=== PATIENT | male | born 1955 | race Caucasian/White ===

== ENCOUNTER 2017-06-08 06:01 | Inpatient (IN) | payer BC ==
[2017-05-24 14:34] LABS: APPEARANCE,URINE CLEAR; BILIRUBIN, URINE NEGATIVE (NEGATIVE); GLUCOSE, URINE (UA) NEGATIVE (NEGATIVE); KETONES,URINE 1+ (NEGATIVE); LEUKOCYTE ESTERASE ,URINE 1+ (NEGATIVE); NITRITE,URINE NEGATIVE (NEGATIVE); PH,URINE 5 (4.5-8.0); PROTEIN,URINE 1+ (NEGATIVE); UROBILINOGEN,URINE NORMAL MG/DL (0.0-1.0)
[2017-05-24 14:45] LABS: COLOR,URINE YELLOW
[2017-05-24 14:46] LABS: INR 0.9 (0.9-1.1)
--- NOTE | 2017-05-24 16:09 | Diagnostic Imaging Report ---
Indication: Cough Technique: 2 views of the chest Comparison: None Findings: Lungs and pleural spaces are clear. The heart size is normal. The bones are unremarkable. Impression: Negative
[2017-06-08] VITALS (14 sets, daily range): BP systolic 99–129; BP diastolic 59–80
[~2017-06-08] VITALS: Ht 185.4 cm; Wt 86.6 kg
[~2017-06-08 06:01] MED LIST: ceFAZolin 2gm/D5W 50ml Premix IV ONE
[2017-06-08] MEDS ORDERED: ALPHA LIPOIC A300 MG PO (07:08)
[2017-06-08] MEDS ORDERED: ROPINIROLE HCL5 MG PO (07:08)
[2017-06-08] MEDS ORDERED: CALCIUM500 M3 PO (07:08)
[2017-06-08] MEDS ORDERED: OXYCODONE-ACET1 EAC5 ORAL (07:08)
[2017-06-08] MEDS ORDERED: VITAMIN B-122000 MC1 PO (07:08)
[2017-06-08] MEDS ORDERED: ACYCLOVIR400 MG ORAL (07:08)
[2017-06-08] MEDS ORDERED: LYRICA75 M1 ORAL (07:08)
[2017-06-08] MEDS ORDERED: MEDROL DOSEPAK4 MG ORAL (07:08)
[2017-06-08] MEDS ORDERED: RASAGILINE MESYL1 MG PO (07:08)
[2017-06-08] MEDS ORDERED: MULTI-VITAMIN1 EACH PO (07:08)
[2017-06-08] MEDS ORDERED: COQ-10100 M1 PO (07:08)
[2017-06-08] MEDS ORDERED: VITAMIN E1000 UNI1 PO (07:08)
[2017-06-08] MEDS ORDERED: Thrombin 5000 units TOPIC ONE (07:49)
[2017-06-08] MEDS ORDERED: Thrombin 5000 units spray kit TOPIC ONE (07:50)
[2017-06-08] MEDS ORDERED: Bacitracin 50000 Units Vial ONE (07:50)
[2017-06-08] MEDS ORDERED: Gelfoam Absorbable 1gm powder pkt TOPIC ONE (07:50)
[2017-06-08] MEDS ORDERED: Bupivacaine 0.5% Inj 30 ml vial INJ ONE (07:50)
[2017-06-08] MEDS ORDERED: EPINEPHrine 1mg/1ml Amp ONE (07:50)
[2017-06-08] MEDS ORDERED: Zemuron 50mg/5ml Inj IV ONE (08:00)
[2017-06-08] MEDS ORDERED: Solu-MEDROL 40mg Inj ONE (08:00)
[2017-06-08] MEDS ORDERED: Sterile Water Irrig 1000ml IRRIG ONE (08:00)
[2017-06-08] MEDS ORDERED: fentaNYL 100 mcg/2 mL IV ONE (08:00)
[2017-06-08] MEDS ORDERED: Midazolam 2mg/2ml Inj ONE (08:00)
[2017-06-08] MEDS ORDERED: NS Irrig 1000ml ONE (08:00)
[2017-06-08] MEDS ORDERED: LR 1000ml ONE (08:00)
[2017-06-08] MEDS ORDERED: Propofol 1,000mg/ 100ml btl IV ONE (08:00)
--- NOTE | 2017-06-08 08:04 | Pre-Procedure Note/Attestation ---
Pre-Procedure Note/Attestation Complete Prior to Procedure Procedure Narrative: lumbar decompression Indications for Procedure Pre-Operative Diagnosis: Spinal stenosis with radiculopathy Attestation I attest that I discussed the nature of the procedure; its benefits; risks and complications; and alternatives (and the risks and benefits of such alternatives ), prior to the procedure, with the patient (or the patient's legal footwear sales representative). I attest that, if there was a reasonable possibility of needing a blood transfusion, the patient (or the patient's legal footwear sales representative) was given the [facility] standardized written summary, pursuant to the Rayshawn [place] Blood Safety Act ([place] Health and Safety Code # 1645, as amended). I attest that I re-evaluated the patient just prior to the surgery and that there has been no change in the patient's H&P, except as documented below: TONY ADDISON Jun 08, 2017 08:04
[2017-06-08] MEDS ORDERED: LR 1000ml 1,000 ML IVLG SCH (09:21)
[2017-06-08] MEDS ORDERED: LR 1000ml 1,000 ML IV SCH (09:30)
[2017-06-08] MEDS ORDERED: Hydromorphone 0.5mg/0.5ml inj IVP PRN (09:30)
[2017-06-08] MEDS ORDERED: DiphenhydrAMINE 50mg/ml Inj IVP PRN (09:30)
--- NOTE | 2017-06-08 09:33 | Anethesia Preoperative Eval ---
Anesthesia Pre-op PMH/ROS General Date of Evaluation: Jun 08, 2017 Time of Evaluation: 08:00 Anesthesiologist: Sanjuana ASA Score: ASA 3 Mallampati Score Class I : Soft palate, uvula, fauces, pillars visible Class II: Soft palate, uvula, fauces visible Class III: Soft palate, base of uvula visible Class IV: Only hard plate visible Mallampati Classification: Class II Surgeon: Marysol Diagnosis: L-5 wedge compression Surgical Procedure: Laminecomy L4-5 Family History: no anesthesia problems Allergies: Coded Allergies: No Known Allergies (Unverified , 06/07/17) Medications: see eMAR Past Medical History Cardiovascular: Denies: HTN, CAD, SD, valve dz, arrhythmia, other Pulmonary: Denies: asthma, COPD, LYNNE, other Gastrointestinal/Genitourinary: Denies: GERD, CRI, ESRD, other Neurologic/Psychiatric: Reports: other - Pakinson's; Denies: dementia, CVA, depression/anxiety, TIA Endocrine: Denies: DM, hypothyroidism, steroids, other HEENT: Denies: cataract (L), cataract (R), glaucoma, PENOBSCOT (L), PENOBSCOT (R), other Hematology/Immune: 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 Exam Physician Exam Last Vital Signs Date Time Temp Pulse Resp B/P (MAP) Pulse Ox O2 Delivery O2 Flow Rate FiO2 06/08/17 07:09 97.8 58 18 129/76 96 Room Air 97.8 Constitutional: NAD Neurologic: CN 2-12 intact Cardiovascular: RRR, no M/R/G Respiratory: CTA Gastrointestinal: S/NT/ND Airway Exam Mallampati Score: Class II MO: full ROM: full Teeth: intact Anesthesia Pre-op A/P Labs WNL Studies Pre-op Studies: EKG - R, echo - Nl wall motion and EF Risk Assessment & Plan Assessment: class 3 patient for laminecomy Plan: GETA, steroid stress dose Status Change Before Surgery: No Pre-Antibiotics Drug: ancef Given Within 1 Hr of Incision: Yes Time Given: 08:30 GURWINDER REYES M.D. Jun 08, 2017 09:33
--- NOTE | 2017-06-08 09:35 | Immediate Post-Op Evaluation ---
Immediate Post-Op Evalulation Immediate Post-Op Evalulation Procedure: Laminectomy L4-5 Date of Evaluation: Jun 08, 2017 Time of Evaluation: 11:45 IV Fluids: 1100 Estimated Blood Loss: 50 Urinary Output: 250 Blood Pressure Systolic: 125 Blood Pressure Diastolic: 69 Pulse Rate: 77 Respiratory Rate: 18 O2 Sat by Pulse Oximetry: 99 Temperature (Fahrenheit): 98.6 Pain Score (1-10): 0 Nausea: No Vomiting: No Complications No complication Patient Status: reacts, patent, extubated, none Hydration Status: adequate Drug: Ancef Given Within 1 Hr of Incision: Yes Time Given: 08:30 GURWINDER REYES M.D. Jun 08, 2017 09:35
[2017-06-08] MEDS ORDERED: D5 1/2NS 1,000 ML IV SCH (11:08)
[2017-06-08] MEDS ORDERED: Naloxone 0.4mg/ml Inj IVP PRN ×2 (11:15→13:15)
[2017-06-08] MEDS ORDERED: Milk of Magnesia 30ml Ud ORAL PRN ×2 (11:15→13:15)
[2017-06-08] MEDS ORDERED: traMADol 50mg tab ORAL PRN ×2 (11:15→13:15)
--- NOTE | 2017-06-08 11:18 | Brief Operative Note ---
Immediate Post Operative Note Operative Note Pre-op Diagnosis: Spinal stenosis with radiculopathy Procedure: L4 and L5 B laminectomy, R l45 discectomy Post-op Diagnosis: same as pre-op Findings: consistent w/pre-op dx studies Surgeon: carmen Enologist: cony lew Anesthesiologist: gabo roque Anesthesia: general Specimen: yes - lamina and disc Complications: none Condition: stable Fluids: 1100 Estimated Blood Loss: volume - 75 Drains: none Implant(s) used?: Yes TONY ADDISON Jun 08, 2017 11:18
--- NOTE | 2017-06-08 11:51 | Diagnostic Imaging Report ---
Indication: Pain, intraoperative Technique: Intraoperative images Comparison: none Findings: [place] initially projected posterior to the inferior aspect of what is presumably L4 and the inferior aspect of L5. Subsequent image demonstrates surgical tool posterior what is presumably L5. Impression: Intraoperative imaging, as described
[2017-06-08] MEDS ORDERED: HYDROmorphone 1mg/ml Carpuject SUBQ PRN ×2 (13:15)
[2017-06-08] MEDS ORDERED: HYDROcodone/Acetamin 7.5/325 tab ORAL PRN ×4 (13:15)
[2017-06-08] MEDS ORDERED: Norco 5mg/325mg tab ORAL PRN ×2 (13:15)
[2017-06-08] MEDS: D5 1/2NS 1,000 ML IV SCH ×2 (13:57→23:26)
[2017-06-08] MEDS ORDERED: ceFAZolin sod 1 GM in D5W 55 ML IV SCH (14:00)
[2017-06-08] MEDS: ceFAZolin sod 1 GM in D5W 110 ML IV SCH ×2 (16:52→23:26)
[2017-06-08] MEDS: Docusate 100mg cap ORAL SCH (16:57)
--- NOTE | 2017-06-08 17:58 | Internal Med Progress Note ---
Subjective Date of Service: Jun 08, 2017 Physician Name PerezGarfield candealrio Attending Physician Marin Gregg Current Medications Medications (Trade) Dose Ordered Sig/Gabriel Route PRN Reason Start Time Stop Time Status Last Admin Dose Admin Acetaminophen (Tylenol) 650 mg Q4H PRN ORAL headache or temp>101 06/08/17 13:15 07/08/17 13:14 Acetaminophen/ Hydrocodone Bitart (Leonardo 5/325) 1 tab Q3H PRN ORAL pain score 1-3 06/08/17 13:15 06/15/17 13:14 Acetaminophen/ Hydrocodone Bitart (Leonardo 5/325) 1 tab Q3H PRN ORAL pain score 1-3 06/08/17 13:15 06/15/17 13:14 Acetaminophen/ Hydrocodone Bitart (Leonardo 7.5/325) 1 tab Q3H PRN ORAL pain score 4-6 06/08/17 13:15 06/15/17 13:14 Acetaminophen/ Hydrocodone Bitart (Leonardo 7.5/325) 1 tab Q3H PRN ORAL pain score 4-6 06/08/17 13:15 06/15/17 13:14 Acetaminophen/ Hydrocodone Bitart (Leonardo 7.5/325) 2 tab Q3H PRN ORAL pain scale 7-10 06/08/17 13:15 06/15/17 13:14 Acetaminophen/ Hydrocodone Bitart (Leonardo 7.5/325) 2 tab Q3H PRN ORAL pain scale 7-10 06/08/17 13:15 06/15/17 13:14 Cefazolin Sodium 1 gm/Dextrose 110 ml @ 220 mls/hr Q8H IV 06/08/17 16:00 06/09/17 08:29 06/08/17 16:52 Dextrose/Sodium Chloride 1,000 ml @ 100 mls/hr Q10H IV 06/08/17 13:15 07/08/17 13:14 06/08/17 13:57 Docusate Sodium (Colace) 100 mg TWICE A DAY ORAL 06/08/17 18:00 07/08/17 17:59 Hydrocortisone (Solu-CORTEF) 100 mg EVERY 12 HOURS IV 06/08/17 21:00 06/09/17 10:00 Hydromorphone HCl (Dilaudid) 1 mg Q4H PRN SUBQ Mild Pain (Pain Scale 1-3) 06/08/17 13:15 06/15/17 13:14 Hydromorphone HCl (Dilaudid) 1 mg Q4H PRN SUBQ Mild Pain (Pain Scale 1-3) 06/08/17 13:15 06/15/17 13:14 Hydromorphone HCl (Dilaudid) 2 mg Q3H PRN SUBQ Severe Pain (Pain Scale 7-10) 06/08/17 13:15 06/15/17 13:14 Hydromorphone HCl (Dilaudid) 2 mg Q4H PRN SUBQ Moderate Pain (Pain Scale 4-6) 06/08/17 13:15 06/15/17 13:14 06/08/17 13:59 Magnesium Hydroxide (Mom) 30 ml QIDPRN PRN ORAL Constipation 06/08/17 13:15 07/08/17 13:14 Naloxone HCl (Narcan) 0.1 mg PRN PRN IVP RR<12/min, pt unarousable 06/08/17 13:15 07/08/17 13:14 Ondansetron HCl (Zofran) 4 mg Q6H PRN IVP Nausea & Vomiting 06/08/17 13:15 07/08/17 13:14 Prochlorperazine (Compazine) 10 mg Q6H PRN IVP Persistent N/V 06/08/17 13:15 07/08/17 13:14 Temazepam (Restoril) 15 mg HSPRN PRN ORAL Insomnia 06/08/17 13:15 06/15/17 13:14 Tramadol HCl (Ultram) 50 mg Q6H PRN ORAL Breakthrough Pain 06/08/17 13:15 06/15/17 13:14 Allergies: Coded Allergies: No Known Allergies (Unverified , 06/07/17) ROS Limited/Unobtainable: No Constitutional: Reports: no symptoms HEENT: Reports: no symptoms Cardiovascular: Reports: no symptoms Respiratory: Reports: no symptoms Gastrointestinal/Abdominal: Reports: no symptoms Genitourinary: Reports: no symptoms Neurologic/Psychiatric: Reports: no symptoms Subjective 61 YO M with lumbar stenosis. Now S/P Lumbar decompression L4-L5 on 06/08/17. Cover for Mauro Acosta-Dr Bowens. Objective Last Vital Signs Date Time Temp Pulse Resp B/P (MAP) Pulse Ox O2 Delivery O2 Flow Rate FiO2 06/08/17 16:00 97.6 69 18 106/64 100 Room Air 97.6 06/08/17 13:00 3.0 General Appearance: WD/WN, alert, moderate distress EENT: PERRL/EOMI, normal ENT inspection Neck: non-tender, normal alignment, supple, normal inspection Cardiovascular: normal peripheral pulses, normal rate, regular rhythm, no gallop/murmur, no JVD Respiratory/Chest: chest wall non-tender, lungs clear, normal breath sounds, no respiratory distress, no accessory muscle use Abdomen: normal bowel sounds, non tender, soft, no organomegaly, no mass Extremities: normal range of motion, non-tender Neurologic: 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 (4) Herniated nucleus pulposus, L4-5 right PEREZGARFIELD Jun 08, 2017 17:58
[2017-06-08] MEDS ORDERED: Docusate 100mg cap ORAL SCH (18:00)
[2017-06-08] MEDS: Tums 500mg ORAL SCH (18:54)
--- NOTE | 2017-06-08 19:00 | Operative Note - Dictated ---
DATE OF OPERATION: 06/08/2017 SURGEON: Marin Gregg M.D. MASH PROCESSING OPERATOR: Rhett Gonzalez PA-C. ANESTHESIOLOGIST: Rayshawn Wei M.D. ANESTHESIA TYPE: General endotracheal anesthesia. PREOPERATIVE DIAGNOSIS: Spinal stenosis at L4 and L5. POSTOPERATIVE DIAGNOSES: Spinal stenosis at L4 and L5 plus right-sided disk extrusion at L4-L5 foramen. OPERATION PERFORMED: 1. Hemilaminectomy bilateral L4. 2. Hemilaminectomy bilateral L5. 3. Medial facetectomy bilaterally L4-L5. 4. Right-sided microscopic diskectomy L4-L5. 5. Neurolysis right side L4-L5. 6. Use of operating microscope. 7. Use of fluoroscopy for localization purposes. ESTIMATED BLOOD LOSS: 75 mL. FLUIDS: 1100. COMPLICATIONS: None. FINDINGS: Extruded disk fragments, right side L4-L5 resulting in severe foraminal stenosis. INDICATIONS: The patient is a very pleasant gentleman with progressively worsening back pain and radiculopathic pain down the right lower extremity. He does have a history of multiple myeloma. He has been followed over the course of last several years on subsequent MRI, which was recently obtained and compared to prior there has been evidence of severe central and lateral recess stenosis at L4-L5 with progression of epidural lipomatosis. There is also significant radiculopathy down the right lower extremity. He did have a good initial response to epidural injection, but the effect wore off, he elected to proceed with surgical intervention due to intractable pain. RISK NOTE: The patient was explained in detail the risks and benefits of surgery to include, but not be limited to, those of bleeding, infection, damage to nerves, vessels, tendons, anesthetic risk, allergic reaction, aspiration, and possibly . The patient understood wished to proceed. OPERATIVE PROCEDURE IN DETAIL: The patient was taken the operative suite after general endotracheal anesthesia was obtained, Dao catheter was placed. He was turned prone onto a radiolucent table. All bony prominences were well padded. The back was prepped and draped in usual sterile fashion. Two needles were placed at L4 and L5 after radiographically confirmed with fluoroscopy. The patient then received 10 mL of Marcaine with epinephrine. Incision was carried down midline from L4 through L5. Subperiosteal dissection was carried out. The anatomy on the right side was discordance with the left side. Multiple fluoroscopic images confirmed appropriate positioning. At this point, high-speed drill was used under microscopic visualization to drill out the leading edge of lamina of L4 as well as medial facetectomy. The ligamentum flavum was removed in a piecemeal fashion. Severe stenosis was encountered. At this point, after the hemilaminectomy was performed at L4, a probe was placed under L5, which was still severely stenotic. A cheryl was placed under the leading edge of L5 and one-half/nearly two-thirds of the lamina of L5 was removed from a North to South direction. This area was severely stenotic and high risk for dural leak. As much as of the decompression that could be done from this approach was performed, I elected to then pack this area of decompress from the right side, which would hopefully make the left-sided approach safer. At this point, this area was packed off in an identical fashion. Hemilaminectomy was performed at the leading edge of L4 and the cephalad one-half/two-thirds of L5. Please note that again the dural sac was very tented under the leading edge of L5 requiring a significant laminectomy of L5 both centrally as well as along the lateral recess and along the area of the neural foramen. This was performed using high-speed drill as well as Kerrison punches. Once the decompression at L4 and L5 was complete, the neuroforamen was probed and noted to be still very stenotic. The nerve root was gently retracted medially which then gave us exposure of the disk and clearly the disk was extruded into a subligamentous position. The PLL was incised and an extruded disk fragment was removed in a piecemeal fashion. Loose intradiscal fragments were then also removed with a combination of pituitary and down pushing curettes. Extensive intradiscal irrigation was performed, which allowed for removal of loose disk fragments. Once satisfied with the diskectomy, a 2/3/4 Microsect curettes were then used to expose the neural foramen and the leading tip of the superior articular process of L5 was osteotomized and removed allowing for thorough decompression. Once satisfied with the decompression at L4 and L5 and neural foramen and diskectomy at the L4-L5 level on the right side, FloSeal was applied. Hemostasis was applied. Attention was then once again turned to the left side, which then allowed with the decompression on the right to more safely complete the decompression down along the leading edge and half of L5 lamina into the lateral recess and centrally. The attention was then turned more proximally and dissection was carried out by removing the hypertrophied facet capsule and superior articular process of L5 and decompressing the neural foramen using a curette and Kerrison punch and Microsect instruments. Once satisfied with the thorough decompression, Valsalva demonstrated no CSF leakage. Copious irrigation was performed. FloSeal once again applied for meticulous hemostasis. The fascia was repaired using #1 Vicryl. Subcutaneous closure using 2-0 Vicryl. Dermabond and sterile dressing was applied. At the time of this dictation, the patient was awaiting extubation. Sponge and needle counts were correct. Neurodiagnostic monitoring did remain stable throughout. Marin Gregg M.D. DR: BIRD JOB#: [id number] CC:
[2017-06-08] MEDS: Hydrocortisone 100mg Inj IV SCH (20:39)
[2017-06-08] MEDS: Lyrica 25mg cap ORAL SCH (20:40)
[2017-06-08] MEDS ORDERED: Chloraseptic Spray 20mL Bottle ORAL PRN (20:45)
[2017-06-08] MEDS ORDERED: oxyCODONE 5mg IR tab ORAL PRN ×2 (20:45)
[2017-06-08] MEDS: valACYclovir HCL 500mg tab ORAL SCH (22:30)
[2017-06-09] VITALS: BP 128/69
--- NOTE | 2017-06-09 00:45 | Consultation ---
DATE OF CONSULTATION: 06/08/2017 CONSULTING PHYSICIAN: Kojo Flores M.D. REFERRING PHYSICIAN: Marin Gregg M.D. REASON FOR CONSULT: Acute pain consult. Dear Dr. Marin Gregg, Thank you kindly for consulting me to evaluate and render an opinion as to how to proceed in the management of the patient's acute postoperative lumbar spine pain after his lumbar spine surgery today. The patient is a 61-year-old gentleman with lumbar spinal stenosis. He underwent lumbar spine decompressive surgery today for his severe foraminal stenosis. Postoperatively, the patient complains of significant discomfort and you consulted me for acute pain consultation. I discussed the case with yourself, Dr. Gregg along with the nurse RN, German. I saw the patient at bedside where I performed a detailed history and physical examination. I spent over 75 minutes in consultation with an additional 30 minutes in medical record review. I reviewed multiple records from today's date of surgery at [facility] including records from the surgery suite, the nursing and pharmacy departments. I reviewed multiple records from yourself, Dr. Gregg along with preoperative Cardiology reports from [facility] along with reports from Dr. Duran Bowens including diagnostic testing. PAST MEDICAL HISTORY: 1. Acute postoperative lumbar spine pain, status post lumbar spine decompressive surgery by Dr. Marin Gregg in May 2017. 2. Distant tobacco usage. 3. Nightly whiskey drinking, one shot per night. 4. Multiple myeloma, followed by [facility]. 5. Parkinson disease. PAST SURGICAL HISTORY: Tonsillectomy, appendectomy, and bilateral arthroscopic knee surgery. MEDICATIONS AT HOME: Acyclovir, vitamins, methylprednisolone, oxycodone, multivitamins, Lyrica, rasagiline, and ropinirole 6 mg b.i.d. ALLERGIES: No known drug allergies. FAMILY HISTORY: Obesity, diabetes, and coronary artery disease. SOCIAL HISTORY: The patient lives and works in [place]. He visits his on the weekends in [place], [place]. He quit tobacco 15 years ago. He drinks a shot of whiskey each evening. REVIEW OF SYSTEMS: Per Dr. Bowens. PHYSICAL EXAMINATION: GENERAL: Age 61. Height 6 feet 1 inch. Weight 87 kg. Body mass index 25. VITAL SIGNS: Afebrile. Pulse 70, respirations 17, blood pressure 106/64, and oxygen saturation 96% on room air. HEENT: Normocephalic and atraumatic. The patient does have a slightly slowed speech, which may be contributed by his Parkinson disease. CHEST: Clear to auscultation. HEART: Regular rate and rhythm. ABDOMEN: Soft. Positive bowel sounds. GENITOURINARY: Deferred. NEUROLOGIC: Detailed neurologic exam per Dr. Gregg. The patient is moving all extremities x4. A 5/5 dorsiflexion and 5/5 plantar flexion in bilateral lower extremities. BACK: Lumbar spine shows a dry dressing, but with painful by incision area. Straight leg raising deferred secondary to recent surgery. The patient has been able to ambulate out of bed to the restroom. DIAGNOSTIC TESTING: Shows echocardiogram normal heart size and function. A 12 lead EKG shows left axis deviation. Preoperative chest x-ray is within normal limits. Laboratory studies from 04/26/2017 shows 1+ protein and 1+ leukocyte esterase. INR 0.9. PTT 24. Glucose 112. Sodium 142, potassium 4.8, chloride 106, bicarb 34, BUN 13, creatinine 0.9, calcium 9.6, phosphorus 2.3, and magnesium 2.1. ALT 19 and AST 17. Total bilirubin 0.6. Total protein 7.0. Hematocrit 40 and white count 9. IMPRESSION: 1. Acute postoperative lumbar spine pain, status post lumbar spine decompressive surgery by Dr. Marin Gregg in May 2017. 2. Distant tobacco usage. 3. Nightly whiskey drinking, one shot per night. 4. Multiple myeloma, followed by [facility]. 5. Parkinson disease. TREATMENT AND RECOMMENDATIONS: The patient has no allergies. He has been started on oxycodone 10 days ago in the outpatient clinic. He has tolerated this medication. With his postsurgical pain complaints, I have ordered two different doses of oxycodone starting with oxycodone 5 mg instant release every three hours p.r.n. for mild pain. I have added oxycodone instant release 10 mg orally every three hours for moderate pain. I have ordered a breakthrough dose of Dilaudid 1 mg subcutaneously every three hours p.r.n. for severe breakthrough pain. The patient will resume his Lyrica 20 mg times a day for baseline neuropathic pain. I have added a dose of Protonix 40 mg nightly for GI ulcer prophylaxis. I have also ordered p.r.n. dose of Mylanta 30 mL q.6 hours in case of any GERD symptom exacerbation. I have ordered Benadryl 20 mg orally every six hours in case of any itching complaints. I have placed the patient on Colace b.i.d. as a stool softener and I have added Chloraseptic spray for any topical sore throat complaints after endotracheal anesthesia. A p.r.n. laxative milk of magnesia has been ordered. I have ordered incentive spirometer at the bedside to encourage good pulmonary toilet. I will defer DVT prophylaxis to the surgeon. The patient already has an ample supply of oxycodone for home usage. Kojo Flores M.D. DR: NOLAN JOB#: [id number] CC:
[2017-06-09 04:00] VITALS: BP 109/69
[2017-06-09 06:29] LABS: BASOPHILS % (AUTO) 0.3 % (0.0-2.0); HEMATOCRIT 33.6 % (42.0-52.0); HEMOGLOBIN 11.7 G/DL (14.2-18.0); LYMPHOCYTES % (AUTO) 7.1 % (20.0-45.0); MEAN CORPUSCULAR VOLUME 98 FL (80-99); MONOCYTES % (AUTO) 8.3 % (1.0-10.0); NEUTROPHILS % (AUTO) 84.3 % (45.0-75.0); PLATELET COUNT 210 K/UL (150-450); RED BLOOD COUNT 3.44 M/UL (4.70-6.10); RED CELL DISTRIBUTION WIDTH 11.5 % (11.6-14.8); WHITE BLOOD COUNT 11.4 K/UL (4.8-10.8)
[2017-06-09 06:46] LABS: ANION GAP 5 mmol/L (5-15); BLOOD UREA NITROGEN 12 mg/dL (7-18); CARBON DIOXIDE 31 MMOL/L (21-32); CHLORIDE 106 MMOL/L (98-107); CREATININE 0.8 MG/DL (0.55-1.30); POTASSIUM 3.8 MMOL/L (3.5-5.1); SODIUM 141 MMOL/L (136-145)
[2017-06-09 08:00] VITALS: BP 127/76
[2017-06-09] MEDS: Hydrocortisone 100mg Inj IV SCH (08:21)
[2017-06-09] MEDS: ceFAZolin sod 1 GM in D5W 110 ML IV SCH (08:21)
[2017-06-09] MEDS: valACYclovir HCL 500mg tab ORAL SCH (08:22)
[2017-06-09] MEDS: Lyrica 25mg cap ORAL SCH ×2 (08:22→13:15)
[2017-06-09] MEDS: Docusate 100mg cap ORAL SCH (08:22)
[2017-06-09] MEDS: Tums 500mg ORAL SCH ×3 (08:22→13:00)
--- NOTE | 2017-06-09 08:43 | Orthopedic Spine Progress Note ---
Ortho Spine - Progress Note Subjective Symptoms: c/o post-op back pain, improved - as compared to pre-op Objective Vital Signs: Last 24 Hour Vital Signs Date Time Temp Pulse Resp B/P (MAP) Pulse Ox O2 Delivery O2 Flow Rate FiO2 06/09/17 04:00 97.2 69 17 109/69 95 Room Air 97.2 06/09/17 00:00 97.2 65 18 128/69 96 Room Air 97.2 06/08/17 20:00 97.4 70 17 99/59 96 Room Air 97.4 06/08/17 18:20 97.6 06/08/17 17:50 97.6 06/08/17 16:00 97.6 69 18 106/64 100 Room Air 97.6 06/08/17 15:00 97.0 69 20 108/74 99 Room Air 97.0 06/08/17 14:00 97.0 69 18 110/63 95 97.0 06/08/17 13:59 97.0 06/08/17 13:00 97.8 97 16 127/80 100 Nasal Cannula 3.0 97.8 06/08/17 12:45 98.6 06/08/17 12:34 98.6 64 16 118/64 99 Nasal Cannula 3.0 98.6 06/08/17 12:27 64 16 116/64 99 Nasal Cannula 3.0 06/08/17 12:25 64 16 116/64 99 Nasal Cannula 3.0 06/08/17 12:15 66 16 123/66 99 Nasal Cannula 3.0 06/08/17 12:00 73 16 119/69 99 Simple Mask 6.0 06/08/17 11:45 73 16 118/67 99 Simple Mask 6.0 06/08/17 11:40 75 15 122/67 99 Simple Mask 6.0 06/08/17 11:36 209.5 77 18 99 06/08/17 11:35 98.2 76 18 121/68 99 Simple Mask 6.0 98.2 I&O: Intake and Output 06/08/17 06/09/17 19:00 07:00 Intake Total 2300 ml 1600 ml Output Total 300 ml Balance 2000 ml 1600 ml Intake Oral 600 ml 500 ml IV Total 1700 ml 1100 ml Output Urine Total 250 ml Estimated Blood Loss 50 ml # Voids 1 4 Wound: clean, intact Drains: none Neuro Status: normal Assessment Procedure Performed: L4 and L5 B laminectomy, R l45 discectomy Plan Plan: PT, pain management, discharge to home TONY ADDISON Jun 09, 2017 08:43
[2017-06-09] MEDS: D5 1/2NS 1,000 ML IV SCH (09:23)
--- NOTE | 2017-06-09 11:57 | 48 Hour Post Anesthesia Eval ---
Post Anesthesia Evaluation Procedure: Laminectomy L4-5 Date of Evaluation: Jun 09, 2017 Time of Evaluation: 08:22 Blood Pressure Systolic: 124 0: 75 Pulse Rate: 68 Respiratory Rate: 20 Temperature (Fahrenheit): 97.5 O2 Sat by Pulse Oximetry: 98 Airway: patent Nausea: No Vomiting: No Pain Intensity: 3 Hydration Status: adequate Cardiopulmonary Status: stable Mental Status/LOC: patient returned to baseline Follow-up Care/Observations: n/a Post-Anesthesia Complications: none Follow-up care needed: N/A RADHA NEVILLE M.D. Jun 09, 2017 11:57
[2017-06-09 12:00] VITALS: BP 128/78
--- NOTE | 2017-06-09 13:24 | Internal Med Progress Note ---
Subjective Date of Service: Jun 09, 2017 Physician Name Garfield Perez Attending Physician Marin Gregg Current Medications Medications (Trade) Dose Ordered Sig/Gabriel Route PRN Reason Start Time Stop Time Status Last Admin Dose Admin Acetaminophen (Tylenol) 650 mg Q4H PRN ORAL headache or temp>101 06/08/17 13:15 07/08/17 13:14 Al Hydroxide/Mg Hydroxide (Mylanta) 30 ml Q6H PRN ORAL GERD 06/08/17 20:45 07/08/17 20:44 Calcium Carbonate (Tums) 500 mg THREE TIMES A DAY ORAL 06/08/17 19:00 07/08/17 18:59 Dextrose/Sodium Chloride 1,000 ml @ 100 mls/hr Q10H IV 06/08/17 13:15 07/08/17 13:14 06/09/17 09:23 Diphenhydramine HCl (Benadryl) 25 mg Q6H PRN ORAL Itching 06/08/17 20:45 07/08/17 20:44 Docusate Sodium (Colace) 100 mg TWICE A DAY ORAL 06/08/17 18:00 07/08/17 17:59 06/09/17 08:22 Hydromorphone HCl (Dilaudid) 1 mg Q3H PRN SUBQ Severe Breakthru Pain (>7) 06/08/17 20:45 06/15/17 20:44 Magnesium Hydroxide (Mom) 30 ml QIDPRN PRN ORAL Constipation 06/08/17 13:15 07/08/17 13:14 Multivitamins (Multivitamins) 1 tab DAILY ORAL 06/09/17 09:00 07/09/17 08:59 Naloxone HCl (Narcan) 0.1 mg PRN PRN IVP RR<12/min, pt unarousable 06/08/17 13:15 07/08/17 13:14 Ondansetron HCl (Zofran) 4 mg Q6H PRN IVP Nausea & Vomiting 06/08/17 13:15 07/08/17 13:14 Oxycodone HCl (Roxicodone) 5 mg Q3H PRN ORAL Mild Pain (Pain Scale 1-3) 06/08/17 20:45 06/15/17 20:44 06/09/17 04:08 Oxycodone HCl (Roxicodone) 10 mg Q3H PRN ORAL Moderate Breakthru Pain (5-7) 06/08/17 20:45 06/15/17 20:44 06/08/17 22:04 Pantoprazole (Protonix) 40 mg BEDTIME ORAL 06/08/17 21:00 07/08/17 20:59 06/08/17 22:03 Phenol/Menthol (Chloraseptic) 1 spray Q3H PRN ORAL SORE THROAT 06/08/17 20:45 07/08/17 20:44 Pregabalin (Lyrica) 25 mg THREE TIMES A DAY ORAL 06/08/17 21:00 07/08/17 20:59 06/09/17 13:15 Temazepam (Restoril) 15 mg HSPRN PRN ORAL Insomnia 06/08/17 13:15 06/15/17 13:14 Valacyclovir HCl (Valtrex) 500 mg EVERY 12 HOURS ORAL 06/08/17 21:00 07/08/17 20:59 06/09/17 08:22 Allergies: Coded Allergies: No Known Allergies (Unverified , 06/07/17) ROS Limited/Unobtainable: No Constitutional: Reports: no symptoms HEENT: Reports: no symptoms Cardiovascular: Reports: no symptoms Respiratory: Reports: no symptoms Gastrointestinal/Abdominal: Reports: no symptoms Genitourinary: Reports: no symptoms Neurologic/Psychiatric: Reports: no symptoms Subjective 61 YO M with lumbar stenosis. Now S/P Lumbar decompression L4-L5 on 06/08/17. Cover for [facility] Dave-Dr Bowens. Await discharge home today Objective Last Vital Signs Date Time Temp Pulse Resp B/P (MAP) Pulse Ox O2 Delivery O2 Flow Rate FiO2 06/09/17 13:15 98.5 06/09/17 12:00 69 19 128/78 96 Room Air 06/08/17 13:00 3.0 Laboratory Tests Test 06/09/17 06:00 White Blood Count 11.4 K/UL (4.8-10.8) H Red Blood Count 3.44 M/UL (4.70-6.10) L Hemoglobin 11.7 G/DL (14.2-18.0) L Hematocrit 33.6 % (42.0-52.0) L Mean Corpuscular Volume 98 FL (80-99) Mean Corpuscular Hemoglobin 34.1 PG (27.0-31.0) H Mean Corpuscular Hemoglobin Concent 34.9 G/DL (32.0-36.0) Red Cell Distribution Width 11.5 % (11.6-14.8) L Platelet Count 210 K/UL (150-450) Mean Platelet Volume 6.8 FL (6.5-10.1) Neutrophils (%) (Auto) 84.3 % (45.0-75.0) H Lymphocytes (%) (Auto) 7.1 % (20.0-45.0) L Monocytes (%) (Auto) 8.3 % (1.0-10.0) Eosinophils (%) (Auto) 0.0 % (0.0-3.0) Basophils (%) (Auto) 0.3 % (0.0-2.0) Sodium Level 141 MMOL/L (136-145) Potassium Level 3.8 MMOL/L (3.5-5.1) Chloride Level 106 MMOL/L (98-107) Carbon Dioxide Level 31 MMOL/L (21-32) Anion Gap 5 mmol/L (5-15) Blood Urea Nitrogen 12 mg/dL (7-18) Creatinine 0.8 MG/DL (0.55-1.30) Estimat Glomerular Filtration Rate > 60 mL/min (>60) Glucose Level 128 MG/DL (74-106) H Calcium Level 8.0 MG/DL (8.5-10.1) L Intake and Output 06/08/17 06/09/17 19:00 07:00 Intake Total 2300 ml 1600 ml Output Total 300 ml Balance 2000 ml 1600 ml Intake Oral 600 ml 500 ml IV Total 1700 ml 1100 ml Output Urine Total 250 ml Estimated Blood Loss 50 ml # Voids 1 4 Objective General Appearance: WD/WN, alert, moderate distress EENT: PERRL/EOMI, normal ENT inspection Neck: non-tender, normal alignment, supple, normal inspection Cardiovascular: normal peripheral pulses, normal rate, regular rhythm, no gallop/murmur, no JVD Respiratory/Chest: chest wall non-tender, lungs clear, normal breath sounds, no respiratory distress, no accessory muscle use Abdomen: normal bowel sounds, non tender, soft, no organomegaly, no mass Extremities: normal range of motion, non-tender Neurologic: supervisor electric motor testing II-XII grossly normal, no motor/sensory deficits Skin: normal pigmentation, warm/dry Assessment/Plan Problem List: (1) Multiple myeloma (2) Parkinson disease (3) Spinal stenosis at L4-L5 level Assessment & Plan: S/P lumbar decompression 06/08/17-see ortho note. (4) Herniated nucleus pulposus, L4-5 right Status: progressing Assessment/Plan Discharge home today GARFIELD PEREZ Jun 09, 2017 13:24
[2017-06-09 14:50] VITALS: BP 132/81
[2017-06-09] MEDS ORDERED: D5 1/2NS 1000ml IV ONE (15:29)
--- NOTE | 2017-06-10 16:25 | Discharge Summary ---
Discharge Summary Discharge Summary Discharge Summary DATE OF ADMISSION: 06/08/2017 DATE OF DISCHARGE: 06/09/2017 CONSULTANTS: 1. Dr. Kojo Flores 2. Dr. Mario Chu [facility] HOSPITAL COURSE: Patient is a pleasant 61-year-old male who had progressively worsening back pain with radiculopathy down to the right lower extremity, he was followed over the course of last several years and on recent MRI compared to prior, showed evidence of severe central and lateral recess stenoses at L4-L5 with progression of epidural lipomatosis. He has history of multiple myeloma. He had significant radiculopathy down to right lower extremity. He initially had good response to epidural injection, however effect wore off and he elected to proceed with surgical intervention. He was admitted on 06/08/2017 and underwent bilateral hemilaminectomy on L4 and L5, and medial facetectomy on bilateral L4-L5. Operatively he was seen by Dr. Flores for pain management. He was given oxycodone and prn Dilaudid for severe breakthrough pain. He was resumed on his Lyrica. He was given Protonix for GI ulcer prophylaxis. He was placed on SCD for DVT prophylaxis. He was encouraged to use incentive spirometer. He underwent physical therapy evaluation and treatment. His vitals were stable and was ambulating well, he had good pain control. He was eventually discharged home. FINAL DIAGNOSES: 1. Spinal stenosis at L4 and L5 status post hemilaminectomy bilateral S4 and S5 , medial facetectomy bilateral L4-L5. (Refer to operative report) 2. Multiple myeloma 3. Parkinson's disease DISPOSITION: Patient was discharged home. DISCHARGE MEDICATIONS: Refer to Discharge Medication List. DISCHARGE INSTRUCTIONS: Follow up in a week. I have been assigned to dictate discharge summary on this account, and I was not involved in the patient's management. Janine Ramirez NP Jun 10, 2017 16:25
== END 2017-06-09 15:30 | disposition home or self-care (01) | DRG 519 ==
LOC: SDSOVERFLO 06:01 → 3E 12:54
PROC: 3E0R3TZ Introduction of Destructive Agent into Spinal Canal, Percutaneous Approach (ICD-10-PCS; principal; 2017-06-08 08:00)
PROC: 0ST20ZZ Resection of Lumbar Vertebral Disc, Open Approach (ICD-10-PCS; principal; 2017-06-08 08:00)
DX: M48.061 Spinal stenosis, lumbar region without neurogenic claudication (principal); C90.00 Multiple myeloma not having achieved remission; G20 Parkinson's disease; M51.16 Intervertebral disc disorders with radiculopathy, lumbar region; Z87.891 Personal history of nicotine dependence
CPT/HCPCS: 36415; 71046; 72020; 76000; 80048; 81001; 85025; 85610; 85730; 86850; 86900; 86901; 87081; 94003; 94150; J2250; J2405

== ENCOUNTER 2018-07-26 08:30 | Inpatient (IN) | payer BC ==
[2018-07-26] VITALS (11 sets, daily range): BP systolic 112–144; BP diastolic 67–80
[~2018-07-26] VITALS: Ht 185.4 cm; Wt 88.0 kg
[~2018-07-26 08:30] MED LIST changes: +ACYCLOVIR400 MG ORAL; +ALPHA LIPOIC A300 MG PO; +CALCIUM500 M3 PO; +COQ-10100 M1 PO; +LYRICA75 M1 ORAL; +MEDROL DOSEPAK4 MG ORAL; +MULTI-VITAMIN1 EACH PO; +OXYCODONE-ACET1 EAC5 ORAL; +RASAGILINE MESYL1 MG PO; +ROPINIROLE HCL5 MG PO; +VITAMIN B-122000 MC1 PO; +VITAMIN E1000 UNI1 PO; -ceFAZolin 2gm/D5W 50ml Premix IV ONE; +ceFAZolin sod 1 GM in NS 55 ML IVPB ONE
[2018-07-26] MEDS ORDERED: CARBIDOPA-LEVO1 EA12 PO (11:32)
[2018-07-26] MEDS ORDERED: LR 1000ml 1,000 ML IVLG SCH (11:35)
[2018-07-26] MEDS ORDERED: Zemuron 50mg/5ml Inj IV ONE (11:41)
[2018-07-26] MEDS ORDERED: Acetaminophen (Non formulary) 100 ML IV ONE (11:45)
[2018-07-26] MEDS ORDERED: Ketorolac 30mg Inj IV PRN ×3 (11:45→16:15)
[2018-07-26] MEDS ORDERED: Hydromorphone 0.5mg/0.5ml inj IVP PRN ×3 (11:45→18:46)
[2018-07-26] MEDS ORDERED: Labetalol 5mg/ml 20ml vial IV PRN ×2 (11:45→16:15)
[2018-07-26] MEDS ORDERED: Meperidine 50mg/ml Inj(FOR RIGORS ONLY) IVP PRN ×2 (11:45→16:30)
[2018-07-26] MEDS ORDERED: HYDROcodone/Acetamin 5/325 tab ORAL PRN ×2 (11:45→16:15)
[2018-07-26] MEDS ORDERED: DiphenhydrAMINE 50mg/ml Inj IVP PRN ×2 (11:45→16:15)
[2018-07-26] MEDS ORDERED: Metoclopramide 10mg/2ml Inj IVP PRN ×2 (11:45→16:15)
[2018-07-26] MEDS ORDERED: Midazolam 2mg/2ml Inj IVP PRN ×2 (11:45→16:15)
[2018-07-26] MEDS ORDERED: HYDROcodone/Acetamin 7.5/325 tab ORAL PRN (11:45)
[2018-07-26] MEDS ORDERED: Atropine Sulfate 0.4mg/ml inj IVP PRN ×2 (11:45→16:15)
[2018-07-26] MEDS ORDERED: LORazepam Inj 2mg/ml 1ml IV PRN ×2 (11:45→16:15)
[2018-07-26] MEDS ORDERED: oxyCODONE HCL/Acetaminophen 5/325mg ORAL PRN ×2 (11:45→16:15)
[2018-07-26] MEDS ORDERED: fentaNYL 100 mcg/2 mL IV PRN ×2 (11:45→16:15)
[2018-07-26] MEDS ORDERED: Thrombin 5000 units TOPIC ONE ×2 (11:52→13:39)
[2018-07-26] MEDS ORDERED: Gelfoam Size TOPIC ONE (11:52)
[2018-07-26] MEDS ORDERED: Bupivacaine w/Epi 0.5% 30ml Vial INJ ONE (11:52)
[2018-07-26] MEDS ORDERED: Bacitracin 50000 Units Vial ONE (11:52)
--- NOTE | 2018-07-26 11:53 | Anethesia Preoperative Eval ---
Anesthesia Pre-op PMH/ROS General Date of Evaluation: July 26, 2018 Time of Evaluation: 12:26 Anesthesiologist: Yeison ASA Score: ASA 3 Mallampati Score Class I : Soft palate, uvula, fauces, pillars visible Class II: Soft palate, uvula, fauces visible Class III: Soft palate, base of uvula visible Class IV: Only hard plate visible Mallampati Classification: Class II Surgeon: Marysol Diagnosis: Back Pain Surgical Procedure: L4-5 Microdiscectomy Anesthesia History: none Family History: no anesthesia problems Allergies: Coded Allergies: No Known Allergies (Unverified , 06/07/17) Medications: see eMAR Patient NPO?: Yes NPO Date: July 25, 2018 NPO Time: 2100 Past Medical History Neurologic/Psychiatric: Reports: other - Parkinsons Hematology/Immune: Reports: other - Multiple Myeloma Anesthesia Pre-op Phys. Exam Physician Exam Last Vital Signs Date Time Temp Pulse Resp B/P (MAP) Pulse Ox O2 Delivery O2 Flow Rate FiO2 07/26/18 11:34 Room Air 07/26/18 11:00 97.4 62 18 129/77 (94) 99 Constitutional: NAD Neurologic: CN 2-12 intact Cardiovascular: RRR Respiratory: CTA Gastrointestinal: S/NT/ND Airway Exam Mallampati Score: Class II MO: full ROM: limited Teeth: missing, intact Anesthesia Pre-op A/P Risk Assessment & Plan Assessment: ASA 3 Plan: GA, SED, GlideScope Go Status Change Before Surgery: No Pre-Antibiotics Dru Grams Ancef IV Given Within 1 Hr of Incision: Yes Time Given: 12:41 Fish Santana MD July 26, 2018 11:53
[2018-07-26] MEDS ORDERED: Sodium Chloride 10ml vial INJ ONE (11:57)
[2018-07-26] MEDS ORDERED: Dexamethasone 4mg/ml vial ONE (11:57)
[2018-07-26] MEDS ORDERED: Lidocaine 1% MPF 10mg/ml 5ml ONE (11:57)
[2018-07-26] MEDS ORDERED: fentaNYL 100 mcg/2 mL IV ONE ×2 (12:06→14:49)
[2018-07-26] MEDS ORDERED: NS Irrig 1000ml ONE (12:26)
[2018-07-26] MEDS ORDERED: LR 1000ml ONE (12:26)
[2018-07-26] MEDS ORDERED: Propofol 200mg/20ml IV ONE (12:26)
[2018-07-26] MEDS ORDERED: Sterile Water Irrig 1000ml IRRIG ONE (12:26)
[2018-07-26] MEDS ORDERED: Lidocaine 1% Plain 30 ml INJ ONE ×2 (12:55→14:33)
--- NOTE | 2018-07-26 13:08 | Pre-Procedure Note/Attestation ---
Pre-Procedure Note/Attestation Complete Prior to Procedure Procedure Narrative: L45 redo laminectomy/discectomy R Indications for Procedure Pre-Operative Diagnosis: HNP/ stenosis and radiculopathy L45 Attestation I attest that I discussed the nature of the procedure; its benefits; risks and complications; and alternatives (and the risks and benefits of such alternatives ), prior to the procedure, with the patient (or the patient's legal guest service representative). I attest that, if there was a reasonable possibility of needing a blood transfusion, the patient (or the patient's legal guest service representative) was given the [facility] standardized written summary, pursuant to the Rayshawn [place] Blood Safety Act ([place] Health and Safety Code # 1645, as amended). I attest that I re-evaluated the patient just prior to the surgery and that there has been no change in the patient's H&P, except as documented below: Marin Gregg MD July 26, 2018 13:08
--- NOTE | 2018-07-26 13:09 | Brief Operative Note ---
Immediate Post Operative Note Operative Note Pre-op Diagnosis: HNP/ stenosis and radiculopathy L45 Procedure: L45 r redo laminectomy Post-op Diagnosis: same as pre-op Findings: consistent w/pre-op dx studies Surgeon: carmen [id number] Programmer: gretchen lew Anesthesiologist: Yeison Anesthesia: general Specimen: yes Complications: none Condition: stable Fluids: 800 Estimated Blood Loss: minimal Drains: hemovac Implant(s) used?: No Marin Gregg MD July 26, 2018 13:09
--- NOTE | 2018-07-26 13:51 | Immediate Post-Op Evaluation ---
Immediate Post-Op Evalulation Immediate Post-Op Evalulation Procedure: L4-5 Microdiscectomy, Hemilaminotomy Date of Evaluation: July 26, 2018 Time of Evaluation: 15:52 IV Fluids: 800 LR Blood Products: 0 Estimated Blood Loss: 50 Urinary Output: 0 Blood Pressure Systolic: 144 Blood Pressure Diastolic: 80 Pulse Rate: 65 Respiratory Rate: 16 O2 Sat by Pulse Oximetry: 100 Temperature (Fahrenheit): 98.2 Pain Score (1-10): 2 Nausea: No Vomiting: No Complications 0 Patient Status: awake, reacts, patent, extubated, none Hydration Status: adequate Dru Grams Ancef IV Given Within 1 Hr of Incision: Yes Time Given: 12:41 Fish Santana MD July 26, 2018 13:51
[2018-07-26] MEDS ORDERED: Hydrogen Peroxide 473ml Bottle TOPIC ONE (14:51)
[2018-07-26] MEDS ORDERED: Glycopyrrolate 0.2mg/ml 1ml Vial ONE (15:02)
[2018-07-26] MEDS ORDERED: Milk of Magnesia 30ml Ud ORAL PRN (15:30)
--- NOTE | 2018-07-26 15:52 | Diagnostic Imaging Report ---
Indication: Back pain. Intraoperative imaging Comparison: None Findings: Fluoroscopic time 5 seconds. Localization crosstable image showing instrument posterior to the L4-5 disc. IMPRESSION: Intraoperative imaging
[2018-07-26] MEDS: Ketorolac 30mg Inj IV PRN ×2 (16:43→18:15)
--- NOTE | 2018-07-26 17:20 | NUR ---
NURSE NOTES: Delicia RN brought patient by bed in stable condition. Alert and oriented x4. Complain of pain 4/10 on surgical site. Hemovac on surgical site and patent and draining well. IV dressing intact and dry. Belonging checked. Bed lowest position. Call light within reach. Will continue to monitor.
--- NOTE | 2018-07-26 18:16 | Cardiology Progress Note ---
Assessment/Plan Assessment/Plan [id number] Objective Last 24 Hour Vital Signs Date Time Temp Pulse Resp B/P (MAP) Pulse Ox O2 Delivery O2 Flow Rate FiO2 07/26/18 17:15 97.2 60 15 127/74 100 Nasal Cannula 3 07/26/18 17:00 63 20 122/71 100 Nasal Cannula 3 07/26/18 16:45 62 18 129/72 100 Nasal Cannula 3 07/26/18 16:30 60 16 130/70 100 Nasal Cannula 3 07/26/18 16:15 61 15 133/73 100 Nasal Cannula 3 07/26/18 16:00 59 17 135/77 100 Nasal Cannula 3 07/26/18 15:50 63 15 126/75 100 Simple Mask 6 07/26/18 15:41 98.0 66 16 144/80 100 Simple Mask 6 07/26/18 15:38 65 16 100 07/26/18 11:34 Room Air 07/26/18 11:00 97.4 62 18 129/77 (94) [address] MD July 26, 2018 18:16
[2018-07-26] MEDS: D5 1/2NS 1,000 ML IV SCH (18:23)
--- NOTE | 2018-07-26 19:25 | NUR ---
NURSE NOTES: Report taken from MISAEL Gavin. Patient is awake and in bed, A&Ox4, friend at bedside. No signs of distress on 3L NC. Minimal complaint of pain 04/24. Surgical dressing c/d/i. Hemovac c/d/i and draining bright red blood, continue to monitor and measure as needed. No further skin issues. IV c/d/i and patent, running D5 1/2NS @ 100 mls/hr. Bed in lowest position, call light within reach.
--- NOTE | 2018-07-26 19:30 | NUR ---
HAND-OFF: Report given to Alex DOUGLAS. Patient in stable condition.
[2018-07-26] MEDS: ceFAZolin sod 1 GM in D5W 55 ML IV SCH (20:15)
[2018-07-26] MEDS ORDERED: REQUIP XL12 MG ORAL (20:40)
[2018-07-26] MEDS ORDERED: DECADRON4 MG PO (20:40)
[2018-07-26] MEDS ORDERED: AZILECT1 MG PO (20:40)
[2018-07-26] MEDS ORDERED: CARBIDOPA-LEVO1 EA13 PO (20:40)
[2018-07-26] MEDS ORDERED: NORCO 5-325 TA1 EACH ORAL (20:40)
[2018-07-26] MEDS ORDERED: REVLIMID10 MG PO (20:40)
[2018-07-26] MEDS ORDERED: oxyCODONE 5mg IR tab ORAL PRN ×2 (21:26→21:45)
[2018-07-26] MEDS: oxyCODONE 5mg IR tab ORAL PRN (23:48)
[2018-07-27] VITALS: BP 118/72
--- NOTE | 2018-07-27 00:45 | Operative Note - Dictated ---
DATE OF OPERATION: 07/26/2018 SURGEON: Marin Gregg M.D. ROUGHER HELPER: Jamie Haley PA-C. ANESTHESIA: Fish Santana M.D. ANESTHESIA TYPE: General endotracheal anesthesia. PREOPERATIVE DIAGNOSIS: Status post prior diskectomy, laminectomy L4-L5 with recurrent disc extrusion and severe right lower extremity radiculopathy. POSTOPERATIVE DIAGNOSIS: Status post prior diskectomy, laminectomy L4-L5 with recurrent disc extrusion and severe right lower extremity radiculopathy. PROCEDURES: 1. Redo laminectomy at L4 and L5 with medial facetectomy, redo right side. 2. Dissection through scarred and altered tissue anatomy. 3. Diskectomy right side L4-L5. 4. Lysis of adhesions. 5. Use of operating microscope. 6. Neurodiagnostic monitoring. 7. Use of fluoroscopy for localization purposes. ESTIMATED BLOOD LOSS: Minimal. COMPLICATIONS: None. FLUIDS: 800 mL. INTRAOPERATIVE FINDINGS: Extensive scar tissue formation from prior surgery making the approach exceedingly difficult requiring meticulous microdissection. INDICATIONS: The patient is a very pleasant gentleman, 62 years old with significant medical comorbidities with a disc extrusion, right side L4-L5 and not responding to conservative care. Surgical intervention was recommended. He had previously undergone a decompression at the L4-L5 level, but unfortunately he developed a recurrent disc herniation. RISK NOTE: The patient was explained in detail risks and benefits of surgery to include, but not be limited to those of damage to nerves, vessels, tendons, anesthetic risk, allergic reaction, aspiration, and possibly . The patient understood and wished to proceed. OPERATIVE PROCEDURE IN DETAIL: The patient was taken to the operative suite. After general endotracheal anesthesia was obtained, Dao catheter was placed. He was turned prone onto the Rodolfo frame. All bony prominences were well padded. The back was prepped and draped in the usual sterile fashion. The skin was infiltrated with Marcaine with epinephrine. X-rays were obtained after needles were placed at the L4-L5 level and the levels were confirmed. At this point, prior incision was re-incised. Extensive scarring was encountered. Dissection was carried out through the scar tissue to the area of the facet joints of L3, L4, and this served as an anatomic marker. At this point, extensive and very tough scar tissue was encountered obscuring all anatomic planes. We were ultimately able to identify the leading edge of L4 as well as the top of the facet joints of L4-L5 as well as the pedicle of L5 along the area of the transverse process. Using the 3 areas of bony anatomy, this allowed us to better identify where the facet joint at L4-5 was. The L4-5 facet joint was exceedingly hypertrophied and had markedly distorted anatomic appearance. At this point, we were able to very gently mobilize the leading edge of the scar tissue into the leading edge of the lamina along the prior area of the laminectomy defect. High-speed drill was then used to thin out the leading edge of lamina L4 superiorly as well as the medial border of the lateral edge of the lamina. Micro curettes were then used to mobilize an interval to enter the epidural space. Kerrison punches were used to expand the laminectomy. The dural sac was engulfed in scar tissue. We were able to identify the interval lateral to the dural sac and with blunt dissection, exposed the disk space. An x-ray was obtained in order to confirm the disk space placement. At this point, meticulous neurolysis was required to mobilize the nerve sac as well as the traversing and exiting nerve roots at the L4-L5 level. Once the disk was visualized due to the exceedingly large disc herniation, the tissue planes were also still exceedingly distorted. Meticulous outside in diskectomy was performed at the L4-L5 level ultimately resulting in thorough decompression. This was performed using down pushing curettes, pituitaries, as well as micro instruments, and rotund instruments, as well as the Alexandre pituitary. Once satisfied with the lateral disc decompression, dissection was extended cephalad which encountered a large disk extrusion under the posterior longitudinal ligament at the level of the entry of the lateral recess/neuroforamen. This disc fragment was also removed. An empty disc phenomenon was encountered at the L4-L5 level as well as a markedly fragile and deteriorated facet joint at L4-L5. At this point, a neural foraminotomy was performed using curved curettes, Kerrison punch, and angled pituitaries. Once satisfied with the decompression, copious irrigation was deployed. FloSeal was applied. Once the FloSeal was applied, additional need for hemostasis was required due to the extensive scar tissue. Medium-sized Hemovac drain was placed. I elected to then also add about 10 or 15 mL of hydrogen peroxide to serve as a hemostatic agent. Copious irrigation was finally performed. Fascia was repaired using #1 Vicryl, subcutaneous closure using 2-0 Vicryl, 4x4s, and Dermabond dressing was applied. The patient was then turned onto his back, awakened, extubated, and transferred to recovery room in stable condition. [facility] Elvin Gregg DR: KURT JOB#: [id number] CC:
--- NOTE | 2018-07-27 01:30 | Consultation ---
DATE OF CONSULTATION: 07/26/2018 CONSULTING PHYSICIAN: Kojo Flores M.D. REFERRING PHYSICIAN: Marin Gregg M.D. REASON FOR CONSULT: Acute pain consult. HISTORY OF PRESENT ILLNESS: Dear Dr. Marin Gregg, Thank you kindly for consulting me to evaluate and render an opinion as to how to proceed in the management of the patient's acute postoperative lumbar spine pain after his revision lumbar spine decompressive surgery today. The patient is a pleasant 62-year-old gentleman, who is suffering with multiple myeloma. He required revision lumbar spine surgery today with redo L4-L5 laminectomy. The patient has been in a rehabilitation center for many months. He has been using p.r.n. Bosworth and oxycodone for increased pain complaints. You consulted me to help with his pain management postoperatively. I saw the patient at bedside. I performed detailed history and physical examination. I discussed the case with the nurse RN, Romaine. I spent over 75 minutes in conversation with an additional 30 minutes in medical record review. I reviewed multiple records from today's date of surgery at [facility] including records from the surgery suite, the pharmacy and nursing departments. I reviewed multiple records from yourself, Dr. Gregg along with 2018 records from the patient's previous hospitalization back in May 2017 when the patient had previous decompressive lumbar spine surgery. PAST MEDICAL HISTORY: 1. Acute postoperative lumbar spine pain, status post revision lumbar spine surgery by Dr. Marin Gregg in July 2018. 2. Previous lumbar spine surgery by Dr. Marin Gregg in May 2017. 3. Multiple myeloma followed at [facility]. 4. Parkinson disease. 5. Erectile dysfunction, per the patient. PAST SURGICAL HISTORY: 1. Lumbar spine surgery by Dr. Marin Gregg in 2018 and 2019. 2. Appendectomy. 3. Tonsillectomy. 4. Bilateral knee surgery. MEDICATIONS AT HOME: Include acyclovir, Sinemet for Parkinson's, Decadron, Bosworth, oxycodone, Revlimid, Percocet, Lyrica 25 mg three times a day, Rasagiline (Azilect), and Requip, (ropinirole). ALLERGIES: No known drug allergies. SOCIAL HISTORY: The patient lives separately from his in [place] for nearly 15 years. He quit tobacco over 15 years ago. He does like to drink alcohol and used to drink a shot of whiskey each evening. This has not occurred at the rehabilitation facility. REVIEW OF SYSTEMS: Per the hospitalist. PHYSICAL EXAMINATION: VITAL SIGNS: Age 62, height 6 feet 1 inch, weight 88 kg. Body mass index 26. Afebrile. Pulse 64, respirations 18, and blood pressure 116/67. Oxygen saturation 97% on supplemental oxygen. BACK: Lumbar spine exam shows discomfort with range of motion. Hemovac lumbar spine drain catheter in place holding suction. Detailed neurologic exam deferred to Dr. Gregg in light of the patient's surgery and preoperative Parkinson's disorder. HEENT: Normocephalic and atraumatic. The patient has a slightly slowed speech, which has been chronic from his Parkinson's. CHEST: Clear to auscultation. HEART: Regular rate and rhythm. ABDOMEN: Soft. GENITOURINARY: Deferred. The patient is voiding urine. NEUROLOGIC: Detailed neurologic exam per Dr. Gregg. DIAGNOSTIC TESTING: Preoperatively from 07/21/2018 shows white count 7, hematocrit 35, and platelets 290. Sodium 139, potassium 4.1, chloride 105, bicarb 25, creatinine 0.9, and BUN 21. Glucose 152. Calcium 9.3. Magnesium 1.9. AST 14, ALT 12, total bilirubin 0.5. Total protein 7.2, albumin 4.1. Hemoglobin A1c 6.1. TSH 0.5 within normal limits. Urinalysis negative. INR 1.0, PTT 26. IMPRESSION: 1. Acute postoperative lumbar spine pain, status post revision lumbar spine surgery by Dr. Marin Gregg in July 2018. 2. Previous lumbar spine surgery by Dr. Marin Gregg in May 2017. 3. Multiple myeloma followed at [facility]. 4. Parkinson disease. 5. Erectile dysfunction, per the patient. TREATMENT RECOMMENDATIONS: I reviewed the patient's 2018 hospitalization records and discussed the case with the pharmacist and reviewed the pharmacy records. The patient has been on alternating doses of Lyrica over the past year. Recently for the past two months, the patient has been using Lyrica 25 mg three times a day. The patient is concerned that his erectile dysfunction may be contributed by the Lyrica dosing. He is not sure how much Lyrica is helping with the pain complaints. Therefore, I am selecting a dose of Lyrica 25 mg two times a day for now. I did not wish to abruptly discontinue the medication. I have set up a tiered regimen of analgesics to help with his pain complaints and help expedite his discharge planning. I have selected oxycodone instant release in two different doses starting with 5 mg every three hours p.r.n. for mild pain and 10 mg every three hours p.r.n. for moderate pain. I then ordered a breakthrough dose of Dilaudid 0.5 mg intravenously every two hours p.r.n. for severe breakthrough pain. Because the patient does have slowed speech, it is somewhat unclear if he is sedated or if this is his baseline Parkinson's. I have asked the nursing team to place him on fall precautions overnight to help reduce the risk for postoperative fall in the immediate postoperative period. His status will be reassessed early postop day #1 to determine if we can remove him from fall precautions. I have ordered an incentive spirometer to encourage good pulmonary toilet. Kojo Flores M.D. DR: MATTHEW JOB#: [id number] CC:
[2018-07-27 04:00] VITALS: BP 128/67
[2018-07-27] MEDS: D5 1/2NS 1,000 ML IV SCH (04:21)
[2018-07-27] MEDS: ceFAZolin sod 1 GM in D5W 55 ML IV SCH ×2 (04:59→13:46)
[2018-07-27] MEDS: Hydromorphone 0.5mg/0.5ml inj IVP PRN (05:24)
--- NOTE | 2018-07-27 07:28 | NUR ---
HAND-OFF: Report given to MISAEL Anderson. Patient is awake and alert in bed, VS stable.
[2018-07-27 08:00] VITALS: BP 112/77
--- NOTE | 2018-07-27 08:00 | Consultation ---
DATE OF CONSULTATION: 07/26/2018 CARDIOLOGY CONSULTATION CONSULTING PHYSICIAN: Bishop Lane M.D. REFERRING PHYSICIAN: Marin Gregg M.D. REASON FOR REFERRAL: Postoperative medical care. HISTORY OF PRESENT ILLNESS: This is a middle-aged gentleman with multiple medical problems who is admitted to the hospital post spine surgery by Dr. Gregg, and I am seeing him postoperatively. He is doing relatively well. His pain is relatively controlled. He really does not have any chest pain. No shortness of breath. No PND. No orthopnea. No palpitations. No dizziness. Does not really have any sore throat. He was seen and evaluated by preoperatively and it was felt to have surgery. PAST MEDICAL HISTORY: Positive for hyperlipidemia. He does have history of Parkinson disease, sciatica, and colonic polyps. FAMILY HISTORY: Diabetes and heart attack. SOCIAL HISTORY: He is . He does not smoke at this time although he used to 34 years ago. Drinks a couple of alcoholic beverages on a daily basis. No drug use. ALLERGIES: He does not have any allergies to medications. PREOPERATIVE MEDICATIONS: Include aspirin, Decadron once a week IV, Viagra 100 mg, Cialis 20 mg, Naprosyn, 500 mg, Requip 12 mg daily, CoQ10, Lyrica 75 mg 3 times a day, daily, acyclovir 400 mg 2 times a day, alpha-lipoic acid 600 mg 3 times a day, vitamin B12 daily, vitamin D, vitamin E, and multivitamins and calcium, and simethicone on a daily basis. REVIEW OF SYSTEMS: GASTROINTESTINAL: Denies any nausea or vomiting. He has not had a bowel movement yet. GENITOURINARY: He has urge to urinate postoperatively. PULMONARY: Denies any coughing or wheezing. CONSTITUTIONAL: No fever, chills, or night sweats. NEUROLOGIC: No numbness or tingling sensation in the legs. PHYSICAL EXAMINATION: GENERAL: Shows to be a middle-aged gentleman, in no respiratory distress. HEAD AND NECK: No jugular venous distention. LUNGS: Clear to auscultation and percussion, although anteriorly. CARDIAC: Regular rate and rhythm. No heaves or thrills noted. ABDOMEN: Soft and nontender. Positive bowel sounds. EXTREMITIES: He has pneumatic compression stockings in place. No significant edema noted distally, and he moves all four extremities including lower extremities well. LABORATORY DATA: No postoperative laboratories available. Preoperative laboratories from 07/21/2018 from office were reviewed with a white count of 7.1 with a hemoglobin 11.1, and a platelet count of 290. Potassium 4.0, sodium 139, BUN of 21, and glucose of 152. Liver function tests are normal and his cholesterol was 247 at that time with LDL of 149 and HDL of 85 and A1c of 6.1. Urinalysis was fairly unremarkable. ASSESSMENT: 1. Herniated disc with lumbar stenosis. 2. Right-sided sciatica. 3. Multiple myeloma. 4. Hyperlipidemia. 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 6. Parkinson disease. PLAN: Dr. Gregg, this patient was seen in cardiac consultation. The patient will be resumed back on his home medications as much as possible avoiding any antiplatelet agents or nonsteroidals for the time being until he is allowed postoperatively from a surgical point of view in the future. Incentive spirometer will be recommended. DVT prophylaxis with the use of pneumatic compression stockings has already been been started and Requip will also be resumed. Bishop Lane M.D. DR: NOE JOB#: [id number] CC:
--- NOTE | 2018-07-27 08:05 | NUR ---
NURSE NOTES: Upbeat personality. Pt aware that he will participate in physical therapy today. Denies pain at this time. Breathing room air.
--- NOTE | 2018-07-27 08:10 | 48 Hour Post Anesthesia Eval ---
Post Anesthesia Evaluation Procedure: L4-5 Microdiscectomy, Hemilaminotomy Date of Evaluation: July 27, 2018 Airway: patent Nausea: No Vomiting: No Pain Intensity: 3 Hydration Status: adequate Cardiopulmonary Status: at baseline Mental Status/LOC: patient returned to baseline Post-Anesthesia Complications: 0 Follow-up care needed: N/A - further care as per primary team Ruma Lewis MD July 27, 2018 08:10
[2018-07-27] MEDS: Lyrica 25mg cap ORAL SCH ×2 (08:29→17:17)
[2018-07-27] MEDS: Docusate 100mg cap ORAL SCH ×2 (08:30→17:16)
[2018-07-27] MEDS: [UNRECOGNIZED DRUG - OTHER] ORAL SCH ×3 (08:30→17:17)
[2018-07-27] MEDS: CARBIDOPA ORAL SCH ×3 (08:30→17:17)
--- NOTE | 2018-07-27 08:53 | NUR ---
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
--- NOTE | 2018-07-27 08:54 | Orthopedic Spine Progress Note ---
Ortho Spine - Progress Note Subjective Symptoms: c/o post-op back pain, improved - as compared to pre-op Objective Vital Signs: Last 24 Hour Vital Signs Date Time Temp Pulse Resp B/P (MAP) Pulse Ox O2 Delivery O2 Flow Rate FiO2 07/27/18 04:00 98.2 55 17 128/67 (87) 98 07/27/18 00:00 98.1 68 19 118/72 (87) 97 07/26/18 21:00 Nasal Cannula 3.0 07/26/18 20:00 98.2 66 17 112/75 (87) 96 07/26/18 17:30 97.5 64 18 116/67 (83) 97 07/26/18 17:15 97.2 60 15 127/74 100 Nasal Cannula 3 07/26/18 17:00 63 20 122/71 100 Nasal Cannula 3 07/26/18 16:45 62 18 129/72 100 Nasal Cannula 3 07/26/18 16:30 60 16 130/70 100 Nasal Cannula 3 07/26/18 16:15 61 15 133/73 100 Nasal Cannula 3 07/26/18 16:00 59 17 135/77 100 Nasal Cannula 3 07/26/18 15:50 63 15 126/75 100 Simple Mask 6 07/26/18 15:41 98.0 66 16 144/80 100 Simple Mask 6 07/26/18 15:38 65 16 100 07/26/18 11:34 Room Air 07/26/18 11:00 97.4 62 18 129/77 (94) 99 I&O: Intake and Output 07/26/18 07/27/18 19:00 07:00 Intake Total 640 ml 480 ml Output Total 210 ml Balance 430 ml 480 ml Intake Oral 390 ml 480 ml IV Total 250 ml Output Urine Total 150 ml Drainage Total 40 ml Peritoneal Dialysis UF 20 ml # Voids 1 6 Wound: clean, intact Neuro Status: normal Assessment Procedure Performed: L45 r redo laminectomy Plan Plan: PT, pain management, discharge plan - aru eval Additional Comments: drain dc's this am Marin Gregg MD July 27, 2018 08:54
[2018-07-27] MEDS ORDERED: Lyrica 75mg cap ORAL SCH (09:00)
--- NOTE | 2018-07-27 09:15 | NUR ---
NURSE NOTES: follow up will be required per pt he receives 40 mg of Decadron on non chemo days. [address]
--- NOTE | 2018-07-27 10:04 | NUR ---
NURSE NOTES: Per pt dose is 40 mg . [employer] Farm[employer] Supervisor phoned [facility] office , and spoke to Karla to inquire about Decadron dose. Per Karla dose is 40 mg on non chemotherapy days, Dr Lane office called , Vine Fruit Farming Supervisor spoke to Ariana who wanted to verify orders. Gave instructions to hold dose until he call movie writer back. Pt made aware
--- NOTE | 2018-07-27 11:47 | NUR ---
*-* INSURANCE *-* ALL CLINICALS AND REVIEWS HAVE BEEN FAXED TO: [employer] PPO NCM NOT ASSIGNED IF PT STAY AFTER 1ST DAY PLS FAX CLINICALS TO [phone]
[2018-07-27 12:00] VITALS: BP 125/61
[2018-07-27] MEDS: oxyCODONE 5mg IR tab ORAL PRN ×2 (13:46→22:27)
--- NOTE | 2018-07-27 14:39 | NUR ---
P.T Note: late entry 929 P.T evaluation completed and treatment initiated per spinal protocol. Please refer to P.T evaluation for current functional status.
[2018-07-27 16:00] VITALS: BP 124/68
--- NOTE | 2018-07-27 16:15 | Progress Note ---
ACUTE PAIN MANAGEMENT PHYSICIAN PROGRESS NOTE DATE: 07/27/2018 MEDICATIONS: Medication administration record reviewed. Medications include multiple patient's home preop medicines, IV fluids, Colace, Lyrica, Pepcid, and Ancef. PRN medications include Restoril, milk of magnesia, Tylenol, Dilaudid, oxycodone, Benadryl, and Zofran. LABORATORY STUDIES: No interval laboratory studies. OBJECTIVE: Vital signs within normal limits. Afebrile, pulse 68, respirations 19, blood pressure 118/72. Oxygen saturation 97% on room air. I saw the patient at bedside with the nurse, Alex. Output from the lumbar spine drain catheter overnight was 40 mL. The patient states that he feels much improved from a spine perspective. Before surgery, he felt uncomfortable and in too much pain to even ambulate from the bed to the restroom. Since surgery, the patient has been able to move out of bed to the restroom and feels that the pain is much improved. The patient is extremely pleased with the surgical outcome. The patient appears to have his baseline mental status and is alert, oriented x3 and fully conversant. He does not appear to be disoriented in any way. He has tolerated the p.r.n. doses of Dilaudid as well as oxycodone 10 mg. Both doses were well tolerated. I will continue these dosings while the patient remains in the hospital. The patient has no nausea symptoms and has requested a regular diet, which we will provide for breakfast later today. The patient denies any shortness of breath or chest pain. He is breathing comfortably on room air. Incentive spirometer was provided to encourage good pulmonary toilet. Sequential compression pneumatic devices have been placed for DVT prophylaxis. Physical therapy training will start later this morning. The patient was turned to the left lateral decubitus position so I could examine the lumbar spine dressing. Dressing appears clean and dry. I removed the dressing to show the incision line without any evidence for erythema or exudate. The incision line was clean and intact with DuraBond sealant intact. The drain site was clean and dry as well. With the Hemovac drain taken off of suction, and end-expiration, I personally removed the indwelling lumbar spine drain catheter. The tip was intact. Alcohol swab was applied generously to the drain hole site. Sterile 4 x 4 gauze was then applied over the drain hole site and incision line, followed by a 6 x 6 island bordered gauze dressing. There were no complications. The prescription for 50 tablets of Percocet 10/325 mg were provided for outpatient usage. Dr. Gregg will decide details regarding showering instructions. We will see how the patient advances with physical therapy to determine discharge planning. Kojo Flores M.D. DR: MATTHEW JOB#: [id number] CC:
--- NOTE | 2018-07-27 16:18 | NUR ---
NURSE NOTES: Follow up call made to Dr Ruby stated that he was unable to contact the oncologist to verify dose. Did not give any new orders. Pt up and ambulating , with physical therapy. Current plan of care will be followed
--- NOTE | 2018-07-27 19:14 | NUR ---
NURSE NOTES: Report given to Alex made aware of pending discharge planning to [facility], 2 to foot during ambulation, and medical support. Pt has not a BM this shift. Educated on importance of taking stool softener to prevent staining. Call light is in reach. Bed is in safe position
--- NOTE | 2018-07-27 19:25 | NUR ---
NURSE NOTES: Report taken from MISAEL Anderson. Patient is in bed awake, A&Ox4. No signs of distress on room air. Having some complaints of pain central to the surgical site, 06/22. States that he is having some radiating pain down right king, common with his sciatica history. Surgical site c/d/i, no further skin issues. IV site c/d/i and patent, hep locked. D/C plans to send patient to [place] [facility] once approved. Bed in lowest position, call light within reach.
--- NOTE | 2018-07-27 19:31 | NUR ---
HAND-OFF: Report given to Alton DOUGLAS.
[2018-07-27 20:00] VITALS: BP 127/68
--- NOTE | 2018-07-27 20:02 | Cardiology Progress Note ---
Assessment/Plan Assessment/Plan 1. Herniated disc with lumbar stenosis. 2. Right-sided sciatica. 3. Multiple myeloma. 4. Hyperlipidemia. 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 6. Parkinson disease. doing well eating walked to day high dose decadron per mm treatment protocol will d/w dr rm and administer if ok dvt ppx pain control IS ARU planned Subjective Cardiovascular: Denies: chest pain, lightheadedness, palpitations Respiratory: Denies: shortness of breath Gastrointestinal/Abdominal: Reports: constipated; Denies: abdominal pain Genitourinary: Denies: burning Objective Last 24 Hour Vital Signs Date Time Temp Pulse Resp B/P (MAP) Pulse Ox O2 Delivery O2 Flow Rate FiO2 07/27/18 16:00 99.0 70 20 124/68 (86) 97 07/27/18 12:00 98.0 80 19 125/61 (82) 96 07/27/18 08:00 97.7 84 16 112/77 (89) 97 07/27/18 08:00 Room Air 07/27/18 04:00 98.2 55 17 128/67 (87) 98 07/27/18 00:00 98.1 68 19 118/72 (87) 97 07/26/18 21:00 Nasal Cannula 3.0 General Appearance: no apparent distress Neck: supple Cardiovascular: normal rate, regular rhythm Respiratory/Chest: lungs clear Abdomen: normal bowel sounds, non tender, soft Extremities: no swelling Intake and Output 07/26/18 07/27/18 19:00 07:00 Intake Total 640 ml 480 ml Output Total 210 ml Balance 430 ml 480 ml Intake Oral 390 ml 480 ml IV Total 250 ml Output Urine Total 150 ml Drainage Total 40 ml Peritoneal Dialysis UF 20 ml # Voids [address] MD July 27, 2018 20:02
[2018-07-28] VITALS: BP 113/68
[2018-07-28] MEDS: Hydromorphone 0.5mg/0.5ml inj IVP PRN ×4 (02:42→20:37)
[2018-07-28 04:00] VITALS: BP 105/59
--- NOTE | 2018-07-28 07:45 | NUR ---
NURSE NOTES: Report received from Alex DOUGLAS, rounds made. Patient sitting at bedside, bilateral SCDs off at this time. No distress on RA, reports pain to lower back 2/10, no NV. Left hand heplock intact, site asymptomatic. Surgical site dressing CDI. CMS +, no NT, wiggles, skin warm, pedal pulses palpable, right foot 3/5, hand grasps strong/equal. Instructed patient on proper alignment/body mechanics while transferring back to bed from sitting position, verbalized understanding. Call light in reach, bed in lowest position. Will continue to monitor.
--- NOTE | 2018-07-28 07:55 | NUR ---
HAND-OFF: Report given to MISAEL Blanco. Patient is awake and seated at bedside, VS stable..
[2018-07-28 08:00] VITALS: BP 102/61
[2018-07-28] MEDS: Docusate 100mg cap ORAL SCH ×2 (08:35→17:07)
[2018-07-28] MEDS: Lyrica 25mg cap ORAL SCH ×3 (08:36→17:07)
[2018-07-28] MEDS: [UNRECOGNIZED DRUG - OTHER] ORAL SCH ×3 (08:37→17:07)
[2018-07-28] MEDS: CARBIDOPA ORAL SCH ×3 (08:37→17:07)
--- NOTE | 2018-07-28 09:13 | Orthopedic Spine Progress Note ---
Ortho Spine - Progress Note Subjective Symptoms: c/o post-op back pain Objective Vital Signs: Last 24 Hour Vital Signs Date Time Temp Pulse Resp B/P (MAP) Pulse Ox O2 Delivery O2 Flow Rate FiO2 07/28/18 08:00 98.5 64 17 102/61 (75) 95 07/28/18 04:00 97.8 60 19 105/59 (74) 100 07/28/18 00:00 98.8 67 18 113/68 (83) 97 07/27/18 21:00 Room Air 07/27/18 20:00 97.5 61 19 127/68 (87) 100 07/27/18 16:00 99.0 70 20 124/68 (86) 97 07/27/18 12:00 98.0 80 19 125/61 (82) 96 I&O: Intake and Output 07/27/18 07/28/18 18:59 06:59 Intake Total 720 ml 480 ml Balance 720 ml 480 ml Intake Oral 720 ml 480 ml Wound: clean Drains: none Neuro Status: normal Assessment Procedure Performed: L45 r redo laminectomy Plan Plan: PT, pain management, discharge plan - pending yesseniau Marin Macdonald MD July 28, 2018 09:13
[2018-07-28 12:00] VITALS: BP 108/56
--- NOTE | 2018-07-28 13:49 | NUR ---
DISCHARGE PLANNING SPOKE WITH WEN AT [facility] AND THEY ARE GOING TO TAKE PATIENT ONCE THEY HAVE AUTHORIZATION FROM [facility].
--- NOTE | 2018-07-28 14:41 | NUR ---
*-* INSURANCE *-* UPDATED CLINICALS HAVE BEEN FAXED TO: [employer] PPO NCM NOT ASSIGNED IF PT STAY AFTER 1ST DAY PLS FAX CLINICALS TO [phone]
--- NOTE | 2018-07-28 15:06 | NUR ---
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
[2018-07-28 16:00] VITALS: BP 112/62
--- NOTE | 2018-07-28 16:15 | Progress Note ---
DATE: 07/28/2018 ACUTE PAIN MANAGEMENT PHYSICIAN PROGRESS NOTE MEDICATIONS: Medication administration record reviewed. Medications include Colace, Pepcid, Lyrica, carbidopa. P.r.n. medications include Restoril, milk of magnesia, Tylenol, Dilaudid, oxycodone, Benadryl, Zofran, Mylanta. LABORATORY STUDIES: No interval laboratory studies. OBJECTIVE: VITAL SIGNS: Afebrile. Pulse 60, respirations 19, blood pressure 105/59, oxygen saturation 100% on room air. I saw the patient at bedside. I discussed the case with the night nurse, RNAlex. The patient has a front wheel walker at the bedside and he is able to move out of bed to the restroom, however, he does show significant slowness and pain with moving around in bed. I tried to reposition the patient in the bed to show proper posture with raising the back of the bed. The patient showed significant discomfort trying to slowly caterpillar himself higher in the supine position. However, the patient did feel much better once he reposition himself in the bed properly. The patient is voiding urine well. This patient has a good appetite without any nausea symptoms. The patient was complaining of increased lower extremity pains. We try to dial-down his Lyrica dosage for the past couple of days. At this point, I would recommend to slowly increase the dose back to 25 mg three times a day. The patient has been using 75 mg three times a day in the past, it is certainly a wide range of dosing to consider. The patient has complained of a side effect of bilateral calf swelling in the past. His outpatient doctors have considered and wondered if Lyrica may have been a culprit at higher doses. The 10 mg dose of oxycodone instant release has been working well. I will discontinue the 5 mg dose to simplify analgesic regimen. He does continue to use Restoril each night for sleeping. The patient remains on Pepcid for GI ulcer prophylaxis. With the patient's continued difficulties with movement, Dr. Gregg, the spine surgeon has recommended the patient be transferred to [facility] and the human services case manager, Jessi Barber and Emely Mullen are examining discharge possibilities. Kojo Flores M.D. DR: BRISA JOB#: [id number] CC:
--- NOTE | 2018-07-28 18:04 | Cardiology Progress Note ---
Assessment/Plan Assessment/Plan 1. Herniated disc with lumbar stenosis. 2. Right-sided sciatica. 3. Multiple myeloma. 4. Hyperlipidemia. 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 6. Parkinson disease. doing well eating walked to day high dose decadron per mm treatment protocol will d/w dr rm and administer if ok dvt ppx pain control IS ARU planned Subjective Cardiovascular: Denies: chest pain Respiratory: Denies: shortness of breath Gastrointestinal/Abdominal: Denies: abdominal pain Genitourinary: Denies: burning Objective Last 24 Hour Vital Signs Date Time Temp Pulse Resp B/P (MAP) Pulse Ox O2 Delivery O2 Flow Rate FiO2 07/28/18 16:00 97.8 58 17 112/62 (79) 96 07/28/18 12:00 98.1 62 17 108/56 (73) 95 07/28/18 09:00 Room Air 07/28/18 08:00 98.5 64 17 102/61 (75) 95 07/28/18 04:00 97.8 60 19 105/59 (74) 100 07/28/18 00:00 98.8 67 18 113/68 (83) 97 07/27/18 21:00 Room Air 07/27/18 20:00 97.5 61 19 127/68 (87) 100 General Appearance: no apparent distress, alert Neck: supple Cardiovascular: normal rate, regular rhythm Respiratory/Chest: lungs clear Abdomen: normal bowel sounds, non tender, soft Extremities: no swelling Intake and Output 07/27/18 07/28/18 19:00 07:00 Intake Total 720 ml 480 ml Balance 720 ml 480 ml Intake Oral 720 ml 480 ml Microbiology Date/Time Source Procedure Growth Status 07/26/18 10:50 Nasal Nares MRSA Culture - Final NO METHICILLIN RESISTANT STAPH AUREUS... Complete Bishop Lane MD July 28, 2018 18:04
--- NOTE | 2018-07-28 18:08 | Cardiology Progress Note ---
Assessment/Plan Assessment/Plan 1. Herniated disc with lumbar stenosis. 2. Right-sided sciatica. 3. Multiple myeloma. 4. Hyperlipidemia. 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 6. Parkinson disease. doing well eating walked to day high dose decadron per mm treatment protocol approved post op by dr rm one time today dvt ppx pain control IS ARU planned Subjective Cardiovascular: Denies: chest pain, lightheadedness Respiratory: Denies: shortness of breath Gastrointestinal/Abdominal: Denies: abdominal pain Genitourinary: Denies: burning Objective Last 24 Hour Vital Signs Date Time Temp Pulse Resp B/P (MAP) Pulse Ox O2 Delivery O2 Flow Rate FiO2 07/28/18 16:00 97.8 58 17 112/62 (79) 96 07/28/18 12:00 98.1 62 17 108/56 (73) 95 07/28/18 09:00 Room Air 07/28/18 08:00 98.5 64 17 102/61 (75) 95 07/28/18 04:00 97.8 60 19 105/59 (74) 100 07/28/18 00:00 98.8 67 18 113/68 (83) 97 07/27/18 21:00 Room Air 07/27/18 20:00 97.5 61 19 127/68 (87) 100 General Appearance: no apparent distress, alert Cardiovascular: normal rate Respiratory/Chest: lungs clear Abdomen: normal bowel sounds, non tender, soft Extremities: no swelling Intake and Output 07/27/18 07/28/18 19:00 07:00 Intake Total 720 ml 480 ml Balance 720 ml 480 ml Intake Oral 720 ml 480 ml Microbiology Date/Time Source Procedure Growth Status 07/26/18 10:50 Nasal Nares MRSA Culture - Final NO METHICILLIN RESISTANT STAPH AUREUS... Complete Bishop Lane MD July 28, 2018 18:08
--- NOTE | 2018-07-28 19:35 | NUR ---
HAND-OFF: Report given to Diamond DOUGLAS.
[2018-07-28 20:00] VITALS: BP 108/62
--- NOTE | 2018-07-28 20:00 | NUR ---
NURSE NOTES: Received patient awake,alert,verbal,resting in bed,uses the walker with minimal assist.
[2018-07-29] VITALS: BP 105/57
[2018-07-29] MEDS: Hydromorphone 0.5mg/0.5ml inj IVP PRN (02:40)
[2018-07-29 04:00] VITALS: BP 111/62
--- NOTE | 2018-07-29 05:58 | NUR ---
HAND-OFF: Written Report given to Bella Solorzano RN.
--- NOTE | 2018-07-29 07:30 | NUR ---
NURSE NOTES: Written report received from Diamond RN, rounds made. Patient sitting in high fowlers position in bed, alert oriented x4 calm. No SOB on RA, no NV, tolerated breakfast well. Back dressing CDI. Reports pain 2/10 to lower back. SCDs off, up with RW. Encouraged IS. Call light in reach, bed in lowest position, will continue to monitor.
[2018-07-29 08:00] VITALS: BP 129/72
--- NOTE | 2018-07-29 08:38 | Orthopedic Spine Progress Note ---
Ortho Spine - Progress Note Subjective Symptoms: c/o post-op back pain, improved - as compared to pre-op Objective Vital Signs: Last 24 Hour Vital Signs Date Time Temp Pulse Resp B/P (MAP) Pulse Ox O2 Delivery O2 Flow Rate FiO2 07/29/18 04:00 97.6 61 20 111/62 (78) 94 07/29/18 03:10 98.6 07/29/18 00:00 98.6 87 20 105/57 (73) 93 07/28/18 20:53 Room Air 07/28/18 20:00 97.7 60 18 108/62 (77) 98 07/28/18 16:00 97.8 58 17 112/62 (79) 96 07/28/18 12:00 98.1 62 17 108/56 (73) 95 07/28/18 09:00 Room Air I&O: Intake and Output 07/28/18 07/29/18 18:59 06:59 Intake Total 1637 ml Balance 1637 ml Intake Oral 1637 ml # Voids 5 Wound: clean, intact Drains: none Neuro Status: other - hyperesthesias at L4/L4 nerve Assessment Procedure Performed: L45 r redo laminectomy Plan Plan: PT, pain management, discharge plan - to Marin Son MD July 29, 2018 08:38
[2018-07-29] MEDS: CARBIDOPA ORAL SCH ×3 (08:44→18:15)
[2018-07-29] MEDS: [UNRECOGNIZED DRUG - OTHER] ORAL SCH ×3 (08:44→18:15)
[2018-07-29] MEDS: Docusate 100mg cap ORAL SCH ×2 (08:45→18:14)
[2018-07-29] MEDS: Lyrica 25mg cap ORAL SCH ×3 (08:48→18:15)
--- NOTE | 2018-07-29 09:46 | NUR ---
TERMINATION CLERK NOTES PATIENT WAS DENIED BY [facility]
[2018-07-29] MEDS ORDERED: Tubing IV Secondary IV ONE (10:09)
[2018-07-29] MEDS ORDERED: D5 1/2NS 1000ml IV ONE (10:09)
--- NOTE | 2018-07-29 10:34 | NUR ---
*-* INSURANCE *-* UPDATED CLINICALS AND REVIEWS HAVE BEEN FAXED TO: CHARMAINE/ALEXIS PPO NCM NOT ASSIGNED IF PT STAY AFTER 1ST DAY PLS FAX CLINICALS TO [phone]
--- NOTE | 2018-07-29 11:10 | NUR ---
NURSE NOTES: per cm pt not eligible for ARU, called and spoke w dr Snyder received order ok to dc home with home health
[2018-07-29 12:00] VITALS: BP 105/61
--- NOTE | 2018-07-29 15:10 | NUR ---
LABORER BRUSH CLEARING NOTES FAXED REFERRAL FOR HOME HEALTH IN [place]: [facility] T- F- [facility] T- [facility] ALL 3 DENIED PATIENT. DISCUSSED WITH PATIENT AND HE AGREED TO STAY IN HIS [place] [facility] [facility] FOR BETTER SERVICE SO REFERRAL WAS SENT TO [facility]. WILL FOLLOW UP
[2018-07-29 16:00] VITALS: BP 115/67
--- NOTE | 2018-07-29 16:00 | Progress Note ---
ACUTE PAIN MANAGEMENT PHYSICIAN PROGRESS NOTE DATE: 07/29/2018 SUBJECTIVE: Medication administration record reviewed. Medications include Restoril, Lyrica, oxycodone, Zofran, milk of magnesia, Dilaudid, Pepcid Colace, Benadryl, Mylanta, and Tylenol. LABORATORY STUDIES: No interval laboratory studies. Vital signs within normal limits. Afebrile, pulse 61, respirations 20, blood pressure 111/62, and oxygen saturation 94% on room air. I saw the patient at bedside. I discussed the case in detail with the surgeon, Dr. Marin Gregg. Also, I did spoke with multiple charge nurses and mental health case manager, Olena regarding case management, the [facility] mental health case manager director Olean stated that [facility] truck sales representative, Makeda visited the patient earlier on . [facility] evaluated the patient and stated that the patient is a candidate for [facility]. The rehabilitation facility and the [place] case management team are in contact with the patient's insurance carrier trying to obtain insurance authorization for transfer to the acute rehabilitation facility. The rehabilitation facility stated that as soon as authorization from insurance carrier is approved, they will open-up and make available a rehabilitation bed so that transfer can occur as soon as possible. The patient's pain has been fairly well controlled. He continues to use the oral oxycodone 10 mg tablets with good efficacy. His last dose was nearly 9 hours ago and the patient states that his pain is fairly well controlled. He still use intermittent doses of the Dilaudid, but less frequently. We will continue him on the three times a day dosing of Lyrica at 25 mg. The patient is still having some left knee hyperesthesia/allodynia symptoms. The patient is comfortable to see if these issues resolve, and may just be postsurgical changes that will improve over time. The patient was having some constipation issues, but had a large bowel movement earlier this morning. He will remain on scheduled Colace with p.r.n. laxatives available. Kojo Flores M.D. DR: MATTHEW JOB#: [id number] CC:
--- NOTE | 2018-07-29 16:50 | NUR ---
CTE TEACHER NOTES SPOKE WITH CHIP FROM [facility], ATTEMPTED TO OBTAIN AUTHORIZATION FOR HH, HOWEVER INSURANCE IS CLOSED AT THIS TO TIME. PT MADE AWARE. CHARGE NURSE MADE AWARE. HH PENDING AUTH.
--- NOTE | 2018-07-29 17:11 | NUR ---
NURSE NOTES: PER CM WAITING ON APPROVAL FOR HH BUT WILL SET UP [facility] [phone] CALLED DR EDWARD OFFICE, PER PT OK TO GO HOME.
--- NOTE | 2018-07-29 17:22 | NUR ---
NURSE NOTES: RECEIVED A CALL FROM DR GARCIA, PER MD CERNA TO CONT HOME MEDS UPON DC PER EL Webb. HAVE SUP PROVIDE TAXI TO [facility] , ASKED SUP FARZAD , PER SUP SHE WILL GET BACK TO ME.
--- NOTE | 2018-07-29 17:38 | NUR ---
NURSE NOTES: PER TONNY GALLEGOS IF SUP HAS QUESTION RE TAXI APPROVAL (LIMIT IS 10MILES) RELAYED THIS INFO TO FARZAD (NARCISO) AND SHE SAID OKAY. WILL FOLLOW UP RE TRANSPORTATION. PATIENT WAS INFORMED THAT THE TAXI WILL BE APPROVED ALL THE WAY TO [facility].
--- NOTE | 2018-07-29 18:00 | NUR ---
NURSE NOTES: Patient reports that he has no one to pick him up from the hospital to take him home at discharge. Nursing supervisor engraving notified for taxi voucher. Drop off address confirmed with patient, updated face sheet provided to nursing supervisor engraving.
--- NOTE | 2018-07-29 18:54 | Cardiology Progress Note ---
Assessment/Plan Assessment/Plan 1. Herniated disc with lumbar stenosis. 2. Right-sided sciatica. 3. Multiple myeloma. 4. Hyperlipidemia. 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 6. Parkinson disease. doing well eating high dose decadron per mm treatment protocol approved post op by dr rm one time yest dvt ppx pain control IS ARU not accpeted due ot insurance reasons home today looks good walking in room and wise Subjective Cardiovascular: Denies: chest pain, lightheadedness Respiratory: Denies: shortness of breath Gastrointestinal/Abdominal: Denies: abdominal pain Genitourinary: Denies: burning Subjective walking Objective Last 24 Hour Vital Signs Date Time Temp Pulse Resp B/P (MAP) Pulse Ox O2 Delivery O2 Flow Rate FiO2 07/29/18 12:00 97.9 86 20 105/61 (76) 94 07/29/18 09:00 Room Air 07/29/18 08:00 98.1 86 20 129/72 (91) 93 07/29/18 04:00 97.6 61 20 111/62 (78) 94 07/29/18 03:10 98.6 07/29/18 00:00 98.6 87 20 105/57 (73) 93 07/28/18 20:53 Room Air 07/28/18 20:00 97.7 60 18 108/62 (77) 98 General Appearance: no apparent distress, alert Neck: supple Cardiovascular: normal rate, regular rhythm Abdomen: non tender, soft Extremities: no swelling Intake and Output 07/28/18 07/29/18 19:00 07:00 Intake Total 1637 ml Balance 1637 ml Intake Oral 1637 ml # Voids [address] MD July 29, 2018 18:54
--- NOTE | 2018-07-29 19:50 | NUR ---
HAND-OFF: Report given to Paul DOUGLAS. Endorsed that patient will be discharged and taxi will be taking patient home.
--- NOTE | 2018-07-29 20:05 | NUR ---
NURSE NOTES: Discharge instructions and prescription x1 reviewed with patient, instructed on PRN medication orders. Instructed patient to contact Dr. Flores for further questions regarding his pain medication. All belongings, script x1, discharge instructions, home medications x3 bags (picked up from pharmacy) given to patient. Back dressing changed at 1835, site with dermabond, no redness, swelling, small amount of old bloody drainage to the previous dressing. IV heplock discontinued, no active bleeding. Awaiting taxi to arrive. Paul DOUGLAS aware.
--- NOTE | 2018-07-29 22:18 | NUR ---
Nurse's notes: Received a call from Mrs. Barbie Bae, of patient. She expressed her concerns about the patient's safety at home as has Parkinson's and cancer and that she is in [place] and will not be back until Wednesday and her does not have keys to their condo, nor his wallet, nor his ID nor any of his belongings with him. As per , she had spoken to the patient earlier today and he told her that he was being transferred/discharged to a rehab place and was just waiting for the approval of their insurance. With that, Mrs Bae cancelled her flight back to [place] for tomorrow. However, as per notes of conservation planner/shelter case manager, insurance did not approve transfer to the acute rehab place and even attempted to find home health companies in the [facility], which was also denied. Per report from both day shift MISAEL Blanco and discharge rn, patient was in a hurry to get home. As patient was cleared for discharge by PMD, discharge education and instruction was performed by MISAEL Blanco and patient signed and attested that he understood the instruction given to him by his caregiver and was discharged. A taxi voucher and prescription for Percocet was also provided to the patient. However, no one called and informed Mrs. Bae of the change in discharge plan. This RN explained to Mrs. Bae the events that led to the patient's discharge to home instead of ARU as what was initially planned. Relayed these events to Welding Process Specialist Sloan Trejo
--- NOTE | 2018-08-01 09:07 | Discharge Summary ---
Discharge Summary Hospital Course Date of Admission July 26, 2018 at 10:12 Date of Discharge July 29, 2018 at 20:31 Admitting Diagnosis Status post prior diskectomy, laminectomy L4-L5 with recurrent disc extrusion and severe right lower extremity radiculopathy. Reason for Hospitalization: elective surgery HPI Fer Bae is a 62 year old male who was admitted on July 26, 2018 at 10:12 . Patient with significant medical comorbidities with disc extrusion, right side L4-L5 and was not responding to conservative care. He had previously undergone a decompression at the L4-L5 level, but unfortunately developed a recurrent disc herniation. Patient unfortunately did not respond to conservative management. Surgical intervention was recommended. Patient opted for surgery and was admitted for elective surgical intervention. Consultations Dr Lane - IM/cardio Dr Flores - pain specialist Procedures s/p 07/26/[address] Gregg 1. Redo laminectomy at L4 and L5 with medial facetectomy, redo right side. 2. Dissection through scarred and altered tissue anatomy. 3. Diskectomy right side L4-L5. 4. Lysis of adhesions. 5. Use of operating microscope. 6. Neurodiagnostic monitoring. 7. Use of fluoroscopy for localization purposes. Hospital Course status post surgery course of recovery uneventful initially IV fluids s/p perioperative antibiotics initially Hemovac drain with minimal output, was removed by surgeon in am after surgery 07/27 neurovascular status closely monitored, remained stable incision clean, dry , and intact pain management was addressed pain specialist followed; pain controlled hemodynamically stable cardio/IM specialist followed ambulated with PT , fall precautions maintained DVT prophylaxis provided use of incentive spirometry was encouraged while in the bed tolerated diet , IV fluids discontinued GI prophylaxis provided antiemetics were on board as needed patient received high dose of Decadron for multiple myeloma treatment protocol as approved by surgeon times one on 07/28 voided freely bowel regimen instituted initially planned for transfer to acute rehabilitation, however, insurance declined acute rehabilitation patient was discharged home with home health services discharge instructions provided follow up with surgeon as outpatient as advised by surgeon FINAL DIAGNOSES Herniated nucleus pulposus with lumbar stenosis and right sided radiculopathy L4-5 s/p L4-5 right redo laminectomy Multiple myeloma Hyperlipidemia Osteonecrosis of the jaw, secondary to mass Parkinson disease Discharge Medications Continued Medications: Acyclovir* (Acyclovir*) 400 Mg Tablet 400 MG ORAL BID, TAB (This prescription has been renewed) Alpha Lipoic Acid (Alpha Lipoic Acid) 300 Mg Capsule 600 MG PO TID, CAP (This prescription has been renewed) Calcium Carbonate (Calcium) 500 Mg Tab.chew 1000 MG PO DAILY, TAB (This prescription has been renewed) Carbidopa/Levodopa (Carbidopa-Levo 25-100 Mg Odt) 1 Each Tab.rapdis 1 EACH PO TID, TAB (This prescription has been renewed) Take at 0800, 1230, 1700 Dexamethasone (Decadron) 4 Mg Tablet 4 MG PO, TAB (This prescription has been renewed) Take 7 Tabs by mouth 3-24 hrs prior to [facility] Infusion Hydrocodone Bit/Acetaminophen 5-325* (Uneeda 5-325*) 1 Each Tablet 1 TAB ORAL Q6H PRN for For Pain, TAB 0 Refills (This prescription has been renewed) Lenalidomide (Revlimid) 10 Mg Capsule 10 MG PO DAILY, CAP (This prescription has been renewed) Take 1 Cap Daily for 21 days then 7 days rest Rasagiline Mesylate (Azilect) 1 Mg Tablet 1 MG PO DAILY, TAB (This prescription has been renewed) Ubidecarenone (Coq-10) 100 Mg Capsule 100 MG PO DAILY, CAP (This prescription has been renewed) Discharge Condition Upon Discharge: stable Discharge Disposition Patient was discharged home Discharge Instructions Discharge Instructions Special Instructions I have been assigned to complete a D/C Summary on this account. I was not involved in the patient management Penny Nichols NP August 01, 2018 09:07
== END 2018-07-29 20:31 | disposition home or self-care (01) | DRG 519 ==
LOC: SDSOVERFLO 10:12 → 3E 17:20
DX: M51.16 Intervertebral disc disorders with radiculopathy, lumbar region (principal); C90.00 Multiple myeloma not having achieved remission; M87.88 Other osteonecrosis, other site; G20 Parkinson's disease; M48.061 Spinal stenosis, lumbar region without neurogenic claudication; Z98.890 Other specified postprocedural states; R22.0 Localized swelling, mass and lump, head; Z87.891 Personal history of nicotine dependence; E78.5 Hyperlipidemia, unspecified
CPT/HCPCS: 36415; 72020; 76000; 86850; 86900; 86901; 87081; 94003; 94150; J2405